=== PATIENT | male | born 1935 | race Caucasian/White ===

== ENCOUNTER 2017-08-27 07:33 | Inpatient (IN) | payer OTHER, BC ==
[2017-08-27] MEDS ORDERED: FAMOTIDINE 20 MG TAB PO ONE (07:38)
[2017-08-27] MEDS ORDERED: DIAZEPAM 5 MG TAB PO ONE (07:38)
[2017-08-27] MEDS ORDERED: NS 1,000 ML IV ONE (07:38)
[2017-08-27] MEDS ORDERED: ASPIRIN EC 325 MG TAB PO ONE ×2 (07:38→07:57)
[2017-08-27] MEDS ORDERED: diphenhydrAMINE 25 MG CAP PO ONE ×2 (07:38→07:57)
--- NOTE | 2017-08-27 07:56 | CPEKG ---
Heart Rate: 70 RR Interval: 857 P-R Interval: 146 QRSD Interval: 162 QT Interval: 468 QTC Interval: 506 P [place]: 0 QRS [place]: -55 T Wave [place]: 78 EKG Severity - ABNORMAL ECG - EKG Impression: VENTRICULAR-PACED COMPLEXES Electronically Signed By: Sanjay Soni 27-Aug-2017 09:22:21
[2017-08-27] MEDS ORDERED: FAMOTIDINE 20 MG TAB ONE (07:57)
[2017-08-27] MEDS ORDERED: DIAZEPAM 5 MG TAB ONE (07:58)
[2017-08-27 08:11] LABS: % IMMATURE GRANULYOCYTES 0.1 % (0.0-1.1); ABSOLUTE IMMATURE GRANULOCYTES 0.01 10^3/uL (0.00-0.10); ADD DIFF? NO; ADD MORPH? NO; ADD SCAN? NO; ATYPICAL LYMPHOCYTE FLAG 0 (0-99); FRAGMENT RBC FLAG 0 (0-99); HEMATOCRIT 39.3 % (40.0-51.0); HEMOGLOBIN 13.9 g/dL (13.7-17.5); LEFT SHIFT FLG 0 (0-99); LIPEMIA HEMOLYSIS FLAG 90 (0-99); MEAN CELL HEMOGLOBIN CONCENTR. 35.4 g/dL (32.4-36.7); MEAN CELL VOLUME 90.6 fL (81.5-99.8); MEAN PLATELET VOLUME 11.2 fL (8.7-11.7); PLATELET CLUMPS FLAG 0 (0-99); PLATELET COUNT 211 10^3/uL (150-400); RED BLOOD CELL COUNT 4.34 10^6/uL (4.40-6.38); RED CELL DISTRIBUTION WIDTH 12.3 % (11.5-15.2)
[2017-08-27 08:24] LABS: INR 1.02 (0.83-1.16); PROTIME(PATIENT) 13.6 SEC (12.0-15.0)
[2017-08-27 08:25] LABS: ANION GAP 10 mEq/L (8-16); CALCIUM 9.6 mg/dL (8.5-10.4); CARBON DIOXIDE 27 mEq/l (22-31); CHLORIDE 102 mEq/L (97-110); CHOLESTEROL 169 mg/dL (140-220); CHOLESTEROL/HDL RATIO 4.69 RATIO (1.00-4.97); GLOMERULAR FILTRATION RATE > 60; GLUCOSE 105 mg/dL (70-100); HIGH DENSITY LIPOPROTEIN 36 mg/dL (40-65); LDL/HDL RATIO 3.17 RATIO (1.00-3.64); LOW DENSITY LIPOPROTEIN 114 mg/dL (80-100); NON-HIGH DENSITY LIPOPROTEIN 133 mg/dL (90-129); POTASSIUM 4.2 mEq/L (3.5-5.2); SODIUM 139 mEq/L (134-144); TRIGLYCERIDE 97 mg/dL (40-150); VERY LOW DENSITY LIPOPROTEINS 19 mg/dL (8-25)
[2017-08-27] MEDS ORDERED: LIDOCAINE 1% 300 MG/30 ML SDV ONE (08:26)
[2017-08-27] MEDS ORDERED: fentaNYL 100 MCG/2 ML INJ ONE ×2 (08:27→08:52)
[2017-08-27] MEDS ORDERED: MIDAZOLAM 2 MG/2 ML VIAL ONE ×2 (08:27→08:51)
[2017-08-27] MEDS ORDERED: IOPAMIDOL (ISOVUE-370) 150 ML BTL IV ONE (08:27)
[2017-08-27] MEDS ORDERED: HEPARIN 10,000 UNIT/10 ML MDV ONE (08:27)
[2017-08-27] MEDS ORDERED: VERAPAMIL 5 MG/2 ML VIAL ONE (08:27)
[2017-08-27] MEDS ORDERED: fentaNYL 100 MCG/2 ML INJ IVP ONE (08:49)
[2017-08-27] MEDS ORDERED: BENZOCAINE UNIT DOSE SPRAY HURRICAINE MM ONE (08:49)
[2017-08-27] MEDS ORDERED: MIDAZOLAM 2 MG/2 ML VIAL IVP ONE (08:49)
--- NOTE | 2017-08-27 08:51 | PDPROPOC ---
Sedation Plan of Care Sedation Plan of Care: vital signs stable, mental status noted, patient educated of risks, benefits, alternatives, patient can tolerate sedation ASA Classification: ASA 2 Planned drugs: fentanyl, midazolam Mallampati Score: Class 2 Mallampati Reference Image: Patient passed 3-3-2 rule?: Yes
--- NOTE | 2017-08-27 08:51 | PDHPUP ---
History & Physical Update H&P update statement: This history and physical update is based on an assessment of the patient which was completed after admission or registration (within 24 hours), but prior to the surgery/procedure. H&P update: H&P reviewed & patient examined, no change in patient's condition since H&P completed
[2017-08-27] MEDS ORDERED: NITROGLYCERIN 0.4 MG BTL SL PRN (11:49)
[2017-08-27] MEDS ORDERED: ATROPINE SULFATE 1 MG/10 ML SYR IVP PRN (11:49)
[2017-08-27] MEDS ORDERED: HYDROCODONE/APAP 5/325 TAB PO PRN (11:49)
[2017-08-27] MEDS ORDERED: ONDANSETRON 4 MG/2 ML VIAL IVP PRN (11:49)
[2017-08-27] MEDS ORDERED: OXYCODONE/APAP 5/325 TAB PO PRN (11:49)
--- NOTE | 2017-08-27 11:50 | ECHO ---
[email or web address] [address] [address] Main: [phone] Fax: Transesophageal Echocardiography Name: LIOR MARY MR#: [id number] Study Date: 08/27/2017 Study Time: 09:19 AM Date of : 1935 Age: 82 year(s) Height: 182.9 cm (72 in.) Weight: 86.64 kg (191 lb.) BSA: 2.09 m2 Gender: Male Examination: PETE Indication: Eval aortic regurgitation Image Quality: Contrast: Requested by: Homa Barrera Heart Rate: Rhythm: BP: 124 mmHg/51 mmHg Procedure Staff Deaf And Hard Of Hearing Teacher: Faby Murphy Physician: Homa Barrera Requesting Provider: Efrain Rodrigues PETE Exam Details Patient Consent: Risks, alternatives of procedure explained to patient, informed consent obtained. Exam Location: Echo lab Patient Fasting: yes Conclusions: Mildly reduced systolic LV function. The ejection fraction is estimated to be 40 %. An agitated saline study was performed and was negative for intracardiac shunting. interatrial septum is thickened. No thrombus in left appendage. Spontaneous contrast is present in the left atrial appendage. The mitral valve leaflets appear redundant. Mild mitral valve regurgitation is present. The aortic valve is tri-leaflet. The RCC of the aortic valve is thickened and appears to prolapse causing a severe eccentric jet of aortic regurgitation.. Measurements: Chambers Valvular Assessment AV/MV Valvular Assessment TV/PV Normal Normal Normal Name Value Range Name Value Range Name Value Range EF Range: 40 % Additional Measurements: Patient: LIOR MARY Study Date: 08/27/2017 Page 1 of 2 09:19 AM Findings: Left Ventricle: Mildly reduced systolic LV function. The ejection fraction is estimated to be 40 %. Left Atrium: An agitated saline study was performed and was negative for intracardiac shunting. interatrial septum is thickened. Left Atrial Appendage: No thrombus in left appendage. Spontaneous contrast is present in the left atrial appendage. Mitral Valve: The mitral valve leaflets appear redundant. Mild mitral valve regurgitation is present. Aortic Valve: The aortic valve is tri-leaflet. The RCC of the aortic valve is thickened and appears to prolapse causing a severe eccentric jet of aortic regurgitation.. l1n (No Signature Object) Patient: LIOR MARY Study Date: 08/27/2017 Page 2 of 2 09:19 AM [id number]
--- NOTE | 2017-08-27 11:57 | PDDXCAT ---
Diagnostic Cath Note - . Date: 08/27/17 Stock Analyst: Holly Indication: other (pre AVR) - Procedure Access: right groin Procedure: left heart catheterization, coronary angiography, left ventriculogram - Materials Left Heart Cath size: 6F Left Heart Cath materials: standard multipack (JL4, JR4, pigtail) - Findings-Left Heart Catheterization LM: normal LAD: normal with 2 principal diagonals LCX: normal with 2 OM branches RCA: dominant. Normal. EDP: 11 LVEF: 50 Wall motion: mild global HK - Findings-Right Heart Catheterization AO: 152/61 Complications: none Estimated blood loss: <50ml Closure method: manual pressure Assessment: Normal coronary arteries. Severe AR; mild CMP. Proceed to AVR Patient Problems: Problems Problem Status Onset Atrial fibrillation Acute Cardiomyopathy, dilated, nonischemic Acute
[2017-08-27 12:28] LABS: HEMOGLOBIN A1C 5.7 % (4.0-6.0)
--- NOTE | 2017-08-27 12:56 | PDGENHP ---
History and Physical - Chief Complaint AI, PAF - History of Present Illness 82M with severe AI and paroxysmal atrial fibrillation admitted today for risk stratification. Pt is s/p LHC which revealed normal coronary arteries. Pt denies light-headedness, weakness, CP, SOB, orthopnea, abd pain, or LE edema. History Information - Allergies/Home Medication List Allergies/Adverse Reactions: No Known Allergies Allergy (Unverified 08/22/13 11:30) Home Medications: Levothyroxine [Synthroid 75 mcg (*)] 75 mcg PO DAILY06 08/22/13 [Last Taken ] Venlafaxine Xr [Effexor Xr 75MG (*)] 225 mg PO DAILY18 08/22/13 [Last Taken ] Carvedilol [Coreg (*)] 25 mg PO BIDMEAL 11/22/13 [Last Taken 08/26/17] Spironolactone [Aldactone 25 MG (*)] 6.25 mg PO DAILY 11/22/13 [Last Taken 08/26] Furosemide [Lasix 40 MG (*)] 40 mg PO BID 08/19/17 [Last Taken 08/26/17] Tamsulosin HCl [Flomax 0.4 MG (*)] 0.4 mg PO DAILY 08/19/17 [Last Taken 08/26/17 ] Losartan Potassium [Cozaar 50 mg (*)] 50 mg PO DAILY 08/25/17 [Last Taken ] Rivaroxaban [Xarelto 10mg (*)] 20 mg PO DAILY 08/25/17 [Last Taken 08/25/17] I have personally reviewed and updated: medical history, social history, surgical history - Past Medical History atrial fibrillation, CHF, hypertension Additional medical history: AI, BPH, depression - Surgical History Reports: pacemaker/AICD (BIV) - Social History Smoking Status: Never smoked Review of Systems Review of Systems: ROS: 10pt was reviewed & negative except for what was stated in HPI & below Physical Exam Physical Exam: Constitutional: no apparent distress, appears nourished, not in pain Eyes: anicteric sclera Ears, Nose, Mouth, Throat: hearing normal Cardiovascular: other (V paced) Respiratory: no respiratory distress Gastrointestinal: soft, non-tender abdomen Skin: warm, normal color Neurologic: AAOx3 Psychiatric: interacting appropriately, not anxious, not encephalopathic, thought process linear Lab Data & Imaging Review 08/27/17 07:55 08/27/17 07:55 WBC 7.41 10^3/uL (3.80-9.50) 08/27/17 07:55 RBC 4.34 10^6/uL (4.40-6.38) L 08/27/17 07:55 Hgb 13.9 g/dL (13.7-17.5) 08/27/17 07:55 Hct 39.3 % (40.0-51.0) L 08/27/17 07:55 MCV 90.6 fL (81.5-99.8) 08/27/17 07:55 MCH 32.0 pg (27.9-34.1) 08/27/17 07:55 MCHC 35.4 g/dL (32.4-36.7) 08/27/17 07:55 RDW 12.3 % (11.5-15.2) 08/27/17 07:55 Plt Count 211 10^3/uL (150-400) 08/27/17 07:55 MPV 11.2 fL (8.7-11.7) 08/27/17 07:55 Neut % (Auto) 61.6 % (39.3-74.2) 08/27/17 07:55 Lymph % (Auto) 22.0 % (15.0-45.0) 08/27/17 07:55 [place] % (Auto) 8.2 % (4.5-13.0) 08/27/17 07:55 Eos % (Auto) 7.2 % (0.6-7.6) 08/27/17 07:55 Baso % (Auto) 0.9 % (0.3-1.7) 08/27/17 07:55 Nucleat RBC Rel Count 0.0 % (0.0-0.2) 08/27/17 07:55 Absolute Neuts (auto) 4.56 10^3/uL (1.70-6.50) 08/27/17 07:55 Absolute Lymphs (auto) 1.63 10^3/uL (1.00-3.00) 08/27/17 07:55 Absolute Monos (auto) 0.61 10^3/uL (0.30-0.80) 08/27/17 07:55 Absolute Eos (auto) 0.53 10^3/uL (0.03-0.40) H 08/27/17 07:55 Absolute Basos (auto) 0.07 10^3/uL (0.02-0.10) 08/27/17 07:55 Absolute Nucleated RBC 0.00 10^3/uL (0-0.01) 08/27/17 07:55 Immature Gran % 0.1 % (0.0-1.1) 08/27/17 07:55 Immature Gran # 0.01 10^3/uL (0.00-0.10) 08/27/17 07:55 PT 13.6 SEC (12.0-15.0) 08/27/17 07:55 INR 1.02 (0.83-1.16) 08/27/17 07:55 Sodium 139 mEq/L (134-144) 08/27/17 07:55 Potassium 4.2 mEq/L (3.5-5.2) 08/27/17 07:55 Chloride 102 mEq/L (97-110) 08/27/17 07:55 Carbon Dioxide 27 mEq/l (22-31) 08/27/17 07:55 Anion Gap 10 mEq/L (8-16) 08/27/17 07:55 BUN 23 mg/dL (7-23) 08/27/17 07:55 Creatinine 1.0 mg/dL (0.7-1.3) 08/27/17 07:55 Estimated GFR > 60 08/27/17 07:55 Glucose 105 mg/dL (70-100) H 08/27/17 07:55 Hemoglobin A1c 5.7 % (4.0-6.0) 08/27/17 07:55 Estim Average Glucose 117 mg/dL (68-126) 08/27/17 07:55 Calcium 9.6 mg/dL (8.5-10.4) 08/27/17 07:55 Magnesium 2.0 mg/dL (1.6-2.3) 08/27/17 07:55 Triglycerides 97 mg/dL (40-150) 08/27/17 07:55 Cholesterol 169 mg/dL (140-220) 08/27/17 07:55 Cholesterol Risk Factr 1.0 (0.2-1.0) 08/27/17 07:55 LDL Cholesterol, Calc 114 mg/dL (80-100) H 08/27/17 07:55 LDL Risk Factor 1.0 (0.2-1.0) 08/27/17 07:55 VLDL Cholesterol 19 mg/dL (8-25) 08/27/17 07:55 Non-HDL Cholesterol 133 mg/dL (90-129) H 08/27/17 07:55 HDL Cholesterol 36 mg/dL (40-65) L 08/27/17 07:55 LDL/HDL Ratio 3.17 RATIO (1.00-3.64) 08/27/17 07:55 Cholesterol/HDL Ratio 4.69 RATIO (1.00-4.97) 08/27/17 07:55 Patient ABO/Rh O POSITIVE 08/27/17 07:55 Antibody Screen NEGATIVE 08/27/17 07:55 Imaging Review: CXR and carotid US pending Visualized and Interpreted imaging results: Yes Interpretation: PETE: EF 40%, no ZORAN thrombus, mild MR, severe AI Visualized and Interpreted EKG results: Yes EKG Interpretation: Positive for: other (V paced) Assessment & Plan Assessment: 82M with severe AI/PAF Plan: AVR, CM [address] Rodrigues
[2017-08-27] MEDS: VENLAFAXINE XR 75 MG CAP PO SCH (16:49)
[2017-08-27] MEDS: CARVEDILOL 25 MG TAB PO SCH (16:50)
[2017-08-27] MEDS: LOSARTAN POTASSIUM 50 MG TAB PO SCH (16:50)
[2017-08-27] MEDS: TAMSULOSIN HCL 0.4 MG CAP PO SCH (16:50)
[2017-08-27] MEDS: FUROSEMIDE 40 MG TAB PO SCH ×2 (16:58→19:32)
[2017-08-27] MEDS: DOFETILIDE 0.125 MG CAP PO SCH (20:08)
[2017-08-27] MEDS ORDERED: CHLORHEXIDINE GLUC HIBICLENS 118 ML BTL TP SCH (21:00)
[2017-08-28] MEDS ORDERED: MANNITOL 25% 12.5 GM/50 ML VIAL IVP ONE (06:00)
[2017-08-28] MEDS ORDERED: INSULIN REGULAR HUMAN 100 UNIT in NS 100 ML IV ONE (06:00)
[2017-08-28] MEDS ORDERED: NOREPINEPHRINE BITARTRATE 16 MG in NS 250 ML IV ONE (06:00)
[2017-08-28] MEDS ORDERED: niCARdipine/NACL 200 ML IV SCH ×2 (06:00→15:30)
[2017-08-28] MEDS ORDERED: MUPIROCIN 2% 22 GM OINT NS ONE (06:00)
[2017-08-28] MEDS ORDERED: PHENYLEPHRINE HCL 50 MG in NS 250 ML IV ONE (06:00)
[2017-08-28] MEDS ORDERED: CITRATE DEXTROSE SOLN 500 ML BAG MISC ONE (06:00)
[2017-08-28] MEDS ORDERED: AMINOCAPROIC ACID 5 GM/20 ML VIAL IV ONE (06:00)
[2017-08-28] MEDS ORDERED: PROTAMINE SULFATE 50 MG/5 ML VIAL IVP ONE (06:19)
[2017-08-28] MEDS ORDERED: MILRINONE/DEXTROSE/100 ML BAG IV ONE (06:19)
[2017-08-28] MEDS ORDERED: CALCIUM CHLORIDE 1 GM/10 ML INJ ONE (06:19)
[2017-08-28] MEDS ORDERED: ALBUMIN 5% 250 ML BOTTLE IV ONE ×2 (06:19→10:38)
[2017-08-28] MEDS ORDERED: LIDOCAINE 2% 100 MG/5 ML SYR ONE (06:20)
[2017-08-28] MEDS ORDERED: AMINOCAPROIC ACID 5 GM/20 ML VIAL ONE (06:20)
[2017-08-28] MEDS ORDERED: niCARdipine/NACL/200 ML BAG IV ONE ×2 (06:20→15:03)
[2017-08-28] MEDS ORDERED: DOPamine/DEXTROSE/250 ML BAG IV ONE (06:20)
[2017-08-28] MEDS ORDERED: AMIODARONE HCL 150 MG/3 ML VIAL ONE (06:20)
[2017-08-28] MEDS ORDERED: NA BICARBONATE 50 MEQ/50 ML VIAL ONE (06:20)
[2017-08-28] MEDS ORDERED: CITRATE DEXTROSE SOLN 500 ML BAG ONE (06:20)
[2017-08-28] MEDS ORDERED: ADENOSINE 6 MG/2 ML VIAL ONE (06:20)
[2017-08-28] MEDS ORDERED: MAGNESIUM SULFATE 1 GM/2 ML VIAL ONE (06:21)
[2017-08-28] MEDS ORDERED: HEPARIN 10,000 UNIT/10 ML MDV ONE (06:21)
[2017-08-28] MEDS ORDERED: ceFAZolin 1 GM VIAL ONE ×3 (06:21→11:05)
[2017-08-28] MEDS ORDERED: methylPREDNISolone SOD SUCC 1 GM/8 ML VIAL ONE (06:21)
[2017-08-28] MEDS ORDERED: LR 1,000 ML IV ONE (07:00)
--- NOTE | 2017-08-28 07:39 | PDHPUP ---
History & Physical Update H&P update statement: This history and physical update is based on an assessment of the patient which was completed after admission or registration (within 24 hours), but prior to the surgery/procedure.
[2017-08-28] MEDS ORDERED: MINERAL OIL 10 ML VIAL ONE (07:51)
[2017-08-28] MEDS ORDERED: MIDAZOLAM 2 MG/2 ML VIAL ONE (07:56)
[2017-08-28] MEDS ORDERED: MIDAZOLAM 2 MG/2 ML VIAL IVP ONE (07:58)
--- NOTE | 2017-08-28 07:58 | PDANEPAE ---
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 Denies CP,SOB - Pulmonary History Hx COPD: No Hx Asthma/Reactive Airway Disease: No Hx Recent Upper Respiratory Infection: No Hx Oxygen in Use at Home: Yes O2 in Use at Home (L/minute): O2 concentrator at night Hx Sleep Apnea: Yes Sleep Apnea Screening Result - Last Documented: Positive Pulmonary History Comment: when living in [place], [place] Sats ran 94%. In [place] Sats run 96-99%. Dx CORDELIA- NO CPAP, only O2 at nite. - Neurologic History Hx Cerebrovascular Accident: No Hx Seizures: No Hx Dementia: No - Endocrine History Hx Diabetes: No Endocrine History Comment: hypothyroid - Renal History Hx Renal Disorders: Yes Renal History Comment: BPH on Flomax - Liver History Hx Hepatic Disorders: No - Neurological & Psychiatric Hx Hx Neurological and Psychiatric Disorders: Yes Neurological / Psychiatric History Comment: depression-on Rx - Cancer History Hx Cancer: No - Congenital Disorder History Hx Congenital Disorders: No - GI History Hx Gastrointestinal Disorders: No - Other Health History Other Health History: skin-bruises sl more w/Xarelto - Chronic Pain History Chronic Pain: No - Surgical History Prior Surgeries: cataract extractions w/IOL. pacemaker insertion 2-14. sx on R epididymis. fatty tumor excised. R bunionectomy ANE Review of Systems Review of Systems: - Exercise capacity METS (RN): 4 METS - Pacemaker Pacemaker Classified Advertising Supervisor: Medtronic Pacemaker Model: CRTD VIVA XT IS1/DF4 Pacemaker Mode: DDI Date Pacemaker Last Checked: 06-03-2017 ANE Patient History - Allergies Allergies/Adverse Reactions: No Known Allergies Allergy (Unverified 08/22/13 11:30) - Home Medications Home Medications: Levothyroxine [Synthroid 75 mcg (*)] 75 mcg PO DAILY06 08/22/13 [Last Taken ] Venlafaxine Xr [Effexor Xr 75MG (*)] 225 mg PO DAILY18 08/22/13 [Last Taken ] Carvedilol [Coreg (*)] 25 mg PO BIDMEAL 11/22/13 [Last Taken 08/26/17] Spironolactone [Aldactone 25 MG (*)] 6.25 mg PO DAILY 11/22/13 [Last Taken 08/26] Furosemide [Lasix 40 MG (*)] 40 mg PO BID 08/19/17 [Last Taken 08/26/17] Tamsulosin HCl [Flomax 0.4 MG (*)] 0.4 mg PO DAILY 08/19/17 [Last Taken 08/26/17 ] Losartan Potassium [Cozaar 50 mg (*)] 50 mg PO DAILY 08/25/17 [Last Taken ] Rivaroxaban [Xarelto 10mg (*)] 20 mg PO DAILY 08/25/17 [Last Taken 08/25/17] - NPO status NPO Since - Liquids (Date): 08/28/17 NPO Since - Liquids (Time): 00:00 NPO Since - Solids (Date): 08/28/17 NPO Since - Solids (Time): 00:00 - Smoking Hx Smoking Status: Never smoked ANE Labs/Vital Signs - Labs Result Diagrams: 08/27/17 07:55 08/27/17 07:55 - Vital Signs Blood Pressure: 132/53 Heart Rate: 73 Respiratory Rate: 16 O2 Sat (%): 98 Height: 6 ft 0.05 in Weight: 85.9 kg ANE Physical Exam - Airway Neck exam: FROM Mallampati Score: Class 2 Mouth exam: normal dental/mouth exam - Pulmonary Pulmonary: no respiratory distress - Cardiovascular Cardiovascular: regular rate and rhythym - ASA Status ASA Status: IV ANE Anesthesia Plan Anesthesia Plan: general endotracheal anesthesia Lines/Monitors: arterial line, central line
[2017-08-28] MEDS ORDERED: REMIFENTANIL HCL 1 MG VIAL ONE (08:12)
[2017-08-28] MEDS ORDERED: fentaNYL 100 MCG/2 ML INJ ONE (08:12)
[2017-08-28] MEDS ORDERED: PROPOFOL/EMULSION 500 MG/50 ML BOTTLE IV ONE (08:12)
[2017-08-28] MEDS ORDERED: DEXMEDETOMIDINE IN 0.9 % NACL 100 ML IV SCH (08:30)
[2017-08-28] MEDS: ceFAZolin 2 GM/SWFI 2 GM/20 ML SYR IVP ONE (08:36)
[2017-08-28] MEDS ORDERED: ROCURONIUM 100 MG/10 ML VIAL ONE (09:58)
[2017-08-28] MEDS ORDERED: NITROGLYCERIN 50 MG/10 ML SDV IV ONE (09:58)
[2017-08-28] MEDS ORDERED: DEXAMETHASONE 4 MG/ML VIAL ONE ×2 (09:58)
[2017-08-28] MEDS ORDERED: MAGNESIUM SULF 2 GM/WATER 50 ML BAG IV ONE (10:37)
[2017-08-28] MEDS: CARVEDILOL 25 MG TAB PO SCH (11:15)
[2017-08-28] MEDS: LOSARTAN POTASSIUM 50 MG TAB PO SCH (11:16)
[2017-08-28] MEDS: FUROSEMIDE 40 MG TAB PO SCH (11:16)
[2017-08-28] MEDS: DOFETILIDE 0.125 MG CAP PO SCH (11:16)
[2017-08-28] MEDS: TAMSULOSIN HCL 0.4 MG CAP PO SCH (11:20)
[2017-08-28] MEDS ORDERED: BISACODYL 10 MG SUPP PR PRN (13:16)
[2017-08-28] MEDS ORDERED: ACETAMINOPHEN 650 MG SUPP PR PRN (13:16)
[2017-08-28] MEDS ORDERED: POLYETHYLENE GLYCOL 3350 17 GM PKT PO PRN (13:16)
[2017-08-28] MEDS ORDERED: ONDANSETRON 4 MG/2 ML VIAL IVP PRN (13:16)
[2017-08-28] MEDS ORDERED: LACTULOSE 20 GM/30 ML UDCUP PO PRN (13:16)
[2017-08-28] MEDS ORDERED: D50W 25 GM/50 ML SYR IVP PRN (13:16)
[2017-08-28] MEDS ORDERED: METOCLOPRAMIDE 10 MG/2 ML VIAL IVP PRN (13:16)
[2017-08-28] MEDS ORDERED: MEPERIDINE 25 MG/ML SYR IVP PRN (13:16)
[2017-08-28] MEDS ORDERED: MAGNESIUM HYDROXIDE 30 ML UDCUP PO PRN (13:16)
[2017-08-28] MEDS ORDERED: SODIUM CL NASAL 45 ML BTL EACHNARE PRN (13:16)
[2017-08-28] MEDS ORDERED: ONDANSETRON DISINTEGRATING 4 MG TAB PO PRN (13:16)
[2017-08-28] MEDS ORDERED: fentaNYL 100 MCG/2 ML INJ IVP PRN (13:16)
[2017-08-28] MEDS ORDERED: ACETAMINOPHEN 325 MG TAB PO PRN (13:16)
[2017-08-28] MEDS ORDERED: PANTOPRAZOLE SODIUM 40 MG VIAL IVP ONE (13:16)
[2017-08-28] MEDS ORDERED: CEPACOL LOZENGE PO PRN (13:16)
[2017-08-28] MEDS ORDERED: MAGNESIUM SULF 2 GM/WATER 50 ML IV ONE (13:16)
[2017-08-28] MEDS ORDERED: INSULIN REGULAR HUMAN 100 UNIT in NS 100 ML IV SCH (13:30)
[2017-08-28] MEDS ORDERED: NS 1,000 ML IV SCH (13:30)
--- NOTE | 2017-08-28 13:40 | POSTANESTH ---
Post Anesthetic Evaluation Cardiovascular Status: Tx Hyper/Hypo-tension Respiratory Status: Other, See Comment Level of Consciousness/Mental Status: Unconscious Pain Control: Adequate, Prn Tx Ordered Nausea/Vomiting Control: Adequate, Prn Tx Ordered Complications Possibly Related to Anesthesia: None Noted (in sicu on vent)
[2017-08-28] MEDS ORDERED: ceFAZolin 2 GM/DEXTROSE 100 ML IV SCH (14:00)
[2017-08-28] MEDS: POTASSIUM Cl (KCl) 50 ML IV PRN ×2 (14:43→16:25)
[2017-08-28] MEDS: ALBUMIN 5% 250 ML IV PRN ×2 (14:45→16:25)
[2017-08-28] MEDS: ceFAZolin 2 GM/SWFI 2 GM/20 ML SYR IVP SCH ×2 (16:26→23:49)
[2017-08-28] MEDS: KETOROLAC 15 MG/1 ML SDV IVP SCH ×2 (16:40→23:54)
[2017-08-28 17:20] LABS: CALCULATED OXYGEN SATURATION 88 % (92-95); O2 CONCENTRATIION 60 % (0-100)
[2017-08-28 19:08] LABS: CALCULATED OXYGEN SATURATION 96 % (92-95); O2 CONCENTRATIION 40 % (0-100)
[2017-08-28] MEDS ORDERED: ORAL BALANCE GEL TUBE PO PRN (19:59)
[2017-08-28] MEDS: MUPIROCIN 2% 22 GM OINT NS SCH (20:51)
--- NOTE | 2017-08-28 22:42 | GOP ---
[f rep st] OPERATIVE REPORT DATE OF OPERATION: 08/28/2017 SURGEON: Efrain Rodrigues DO THEORETICAL PHYSICS TEACHER: Barbara Kim, PAC. ANESTHESIOLOGIST: Verito Gonzalez MD. PREOPERATIVE DIAGNOSIS: 1. 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 2. Severe aortic insufficiency. 3. Longstanding persistent atrial fibrillation. POSTOPERATIVE DIAGNOSIS: 1. 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 2. Severe aortic insufficiency. 3. Longstanding persistent atrial fibrillation. PROCEDURE PERFORMED: 1. Full Rodriguez Maze IV, both left and right side, with cryoablation and radiofrequency ablation, with a ssociated testing. 2. Aortic valve replacement with a #25 Magna bioprosthesis. 3. Left ventricular lead placement on the lateral wall, tunnelled to the previous pacemaker pocket. FINDINGS: DESCRIPTION OF PROCEDURE: Patient was consented for surgery with progressive heart failure symptoms and worsening LV function with associated severe aortic insufficiency. His ascending aorta was not s ignificantly enlarged. The ventricle was markedly enlarged, based on all measured parameters. He hernandez d a previous tachycardia-induced myopathy, which improved with biventricular pacing. Additional LV l ead placement was requested by Electrophysiology. He was brought to the operating room, intubated, monitoring lines were placed. He was prepped and dr betsy in sterile classical manner. Sternotomy was performed. He was heparinized, cannulated in the a scending aorta and bicaval cannulas, as well as retrograde cardioplegia catheter. Cardiopulmonary by pass was begun. The aorta was crossclamped and LV sump was placed, and retrograde cardioplegia was a dministered after cardiac arrest was obtained. Topical hypothermia in the form of slush was also uti lized. It should be noted, before arresting the heart, we did do exit and entrance block confirmatio n in both pulmonary veins, and there was no evidence of obstruction either way. We then performed an aortotomy to inspect the aortic valve. We excised the aortic valve, which was t rileaflet. The right coronary cusp was heavily calcified and prolapsed; in fact, all 3 cusps were pr olapsed. The LV chamber was irrigated. We then placed a 25 mm Magna valve in a supra-annular positi on with interrupted 2-0 Tycron pledgeted mattress sutures. The aortotomy was closed in a two-layer f ashion. Antegrade cardioplegia was then administered directly through the aorta throughout the proce dure. The retrograde catheter was left in place as well. We then did pulmonary vein ablation with 3 separate ablation lines, performed on the right and left a ntrum, confirming transmurality post pump with entrance and exit block confirmation. We then excised the tip of the left atrial appendage and performed an ablation line to the superior pulmonary vein u ntil impedance was less than 10 seconds. We then marked the terminus of the left and right coronarie s on the coronary sinus with a blue marker, by elevating the heart. We then exposed the left atrium through the right superior pulmonary vein, extending the incision all the way over to the left pulmon [place] veins superiorly and in from the inferior pulmonary veins doing almost a classic cut-and-sew Maze . I then completed the roof in 4 lesions with radiofrequency, with multiple lesion sets confirming i t. I then performed the isthmus lesion up to the anulus with radiofrequency, and then overlapped it inferiorly along the coronary sinus and superiorly with 3-minute cryoablation on both surfaces. It s hould be noted, the retrograde catheter had been pulled out before that. The left atrium was then cl osed without difficulty. These tissues were quite friable. LV sump was left across the mitral valve for de-airing. We then removed the cross-clamp. It should be noted we then placed a clip across the left atrial appendage, occluding it flush with th e left atrium. Aspiration through the apex to remove air and intermittent ventricular sump drainage of the ventricle were performed to remove air when the cross-clamp was removed, and both vents were k ept up to keep him from ejecting. We then secured the caval tapes and performed the right-sided lesi on set with a free wall ablation with radiofrequency and incision down to the septum, and then the ca martha lines performed with radiofrequency. The isthmus line was completed with cryo for 3 minutes. Th e right atrium was then closed with continuous running 4-0 Prolene. We then spent some time fixing a tear in the inferior cava from traction on the caval cannula without difficulty, with felt reinforcement. We then arrested the patient on pump. During that period, the LV lead was screwed into the lateral wall above the circumflex distribution, down near the coronary sinus. It was sewn in for security, and then brought up on the anterior surface of the heart. After weaning the patient from bypass, the echo confirmed a good valvular function, ventricular function a ppeared to be markedly impaired; pre pump was approximately 40%, post pump was in the 30% range. Keaton tropes were begun and then with time, his pump function actually improved, we were able to wean down some of the inotropes. The heparin was reversed with protamine. The cannulas were removed and overs ewn. Four pacing wires were placed. The thymic fat and pericardium were closed. Chest was closed w ith 2 mediastinal drains. I then tunneled the pacemaker, bringing it up over the sternal notch beneath the pacemaker pocket, wh ere it was secured with a cap on it, for future attention. He was returned to ICU in stable condgaleo n. /[id number]/MODL
[2017-08-28 23:19] LABS: HEMATOCRIT 30.5 % (40.0-51.0); HEMOGLOBIN 10.6 g/dL (13.7-17.5); MEAN CELL HEMOGLOBIN 32.4 pg (27.9-34.1); MEAN CELL HEMOGLOBIN CONCENTR. 34.8 g/dL (32.4-36.7); MEAN CELL VOLUME 93.3 fL (81.5-99.8); RED BLOOD CELL COUNT 3.27 10^6/uL (4.40-6.38); RED CELL DISTRIBUTION WIDTH 12.8 % (11.5-15.2)
[2017-08-29 04:13] LABS: % IMMATURE GRANULYOCYTES 0.6 % (0.0-1.1); ABSOLUTE IMMATURE GRANULOCYTES 0.12 10^3/uL (0.00-0.10); ADD DIFF? NO; ADD MORPH? NO; ADD SCAN? NO; ATYPICAL LYMPHOCYTE FLAG 0 (0-99); FRAGMENT RBC FLAG 0 (0-99); HEMATOCRIT 30.4 % (40.0-51.0); HEMOGLOBIN 10.5 g/dL (13.7-17.5); LEFT SHIFT FLG 20 (0-99); LIPEMIA HEMOLYSIS FLAG 90 (0-99); MEAN CELL HEMOGLOBIN 32.3 pg (27.9-34.1); MEAN CELL HEMOGLOBIN CONCENTR. 34.5 g/dL (32.4-36.7); MEAN CELL VOLUME 93.5 fL (81.5-99.8); MEAN PLATELET VOLUME 11.4 fL (8.7-11.7); PLATELET CLUMPS FLAG 10 (0-99); PLATELET COUNT 166 10^3/uL (150-400); RED BLOOD CELL COUNT 3.25 10^6/uL (4.40-6.38); RED CELL DISTRIBUTION WIDTH 12.8 % (11.5-15.2)
[2017-08-29 04:23] LABS: INR 1.27 (0.83-1.16); PROTIME(PATIENT) 16.1 SEC (12.0-15.0)
[2017-08-29 04:28] LABS: ANION GAP 9 mEq/L (8-16); CALCIUM 9.1 mg/dL (8.5-10.4); CARBON DIOXIDE 27 mEq/l (22-31); CHLORIDE 112 mEq/L (97-110); CREATININE 1.1 mg/dL (0.7-1.3); GLOMERULAR FILTRATION RATE > 60; GLUCOSE 127 mg/dL (70-100); POTASSIUM 4.9 mEq/L (3.5-5.2); SODIUM 148 mEq/L (134-144)
[2017-08-29] MEDS: KETOROLAC 15 MG/1 ML SDV IVP SCH ×2 (05:49→11:35)
[2017-08-29] MEDS: HEPARIN 5,000 UNIT/0.5 ML SYR SC SCH ×3 (05:56→22:03)
[2017-08-29] MEDS ORDERED: FUROSEMIDE 20 MG/2 ML VIAL IVP ONE (06:30)
--- NOTE | 2017-08-29 07:16 | SOAPPROG ---
SOAP Progress Note Assessment/Plan: POD #1 AVR with #25 Magna bioprosthesis, Rodriguez-Maze IV, left ventricular lead placement tunneled to AICD pocket Severe AI s/p bioprosthetic AVR - stable. Long-standing persistent atrial fibrillation s/p CM4 - Coumadin for INR 2-3 duration dependent on rhythm. Continue atrial pacing for optimized hemodynamics. Acute blood loss anemia - stable without the need for blood product transfusions. 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 HF meds seals appropriate. h/o AICD placement s/p LV lead placement tunnelled to pacer pocket - for future management as per cardiology. Subjective: Denies SOB/CP. Objective: Vital Signs Temp Pulse Resp BP Pulse Ox 37.4 C 98 18 118/65 93 08/29/17 05:00 08/29/17 05:00 08/29/17 05:00 08/29/17 05:00 08/29/17 05:00 Microbiology 08/28/17 08:45 Gram Stain - Final Neck - Other Laboratory Results 08/29/17 04:00 08/29/17 04:00 08/28/17 08/29/17 08/30/17 05:59 05:59 05:59 Intake Total 750 1285.6 Output Total 1848 Balance 750 -562.4 PT 16.1 SEC (12.0-15.0) H 08/29/17 04:00 INR 1.27 (0.83-1.16) H 08/29/17 04:00 Physical Exam - Physical Exam General Appearance: WD/WN, alert, no apparent distress EENT: No scleral icterus (R), No scleral icterus (L) Neck: normal inspection Respiratory: No respiratory distress Cardiac/Chest: other (atrial paced) Abdomen: normal bowel sounds, soft, No distended Skin: normal color, warm/dry Extremities: No pedal edema Neuro/Psych: no motor/sensory deficits, alert, normal mood/affect, oriented x 3 ICD10 Worksheet Patient Problems: Problems Problem Status Onset Acute blood loss anemia Acute S/P aortic valve replacement with bioprosthetic valve Acute ~08/28/17 Status post Maze operation for atrial fibrillation Acute ~08/28/17 s/p placement of LV epicardial lead Acute ~08/28/17 Aortic valve insufficiency Chronic Chronic anticoagulation Chronic Atrial fibrillation Chronic Cardiomyopathy, dilated, nonischemic Chronic
[2017-08-29] MEDS ORDERED: ASPIRIN 81 MG CHEWABLE TAB TUBE PRN (09:00)
[2017-08-29] MEDS: ceFAZolin 2 GM/SWFI 2 GM/20 ML SYR IVP SCH ×2 (09:00→15:56)
[2017-08-29] MEDS: MUPIROCIN 2% 22 GM OINT NS SCH ×2 (09:01→21:16)
[2017-08-29] MEDS: ASPIRIN 81 MG CHEWABLE TAB PO SCH (09:03)
[2017-08-29] MEDS: PANTOPRAZOLE SODIUM 40 MG TAB PO SCH (09:03)
[2017-08-29] MEDS: ALBUMIN 5% 250 ML IV PRN (10:15)
[2017-08-29] MEDS ORDERED: fentaNYL 25 MCG PATCH TD ONE ×2 (11:26→12:00)
[2017-08-29 12:29] LABS: POTASSIUM 4.9 mEq/L (3.5-5.2)
[2017-08-29] MEDS: VENLAFAXINE XR 75 MG CAP PO SCH ×2 (15:11→18:00)
[2017-08-29] MEDS ORDERED: WARFARIN SODIUM 5 MG TAB PO ONE (16:00)
--- NOTE | 2017-08-29 16:09 | ASMTCMCOM ---
CM Note CM Note Notes: Pt is s/p heart surgery with Dr Rodrigues. DC needs not clear yet, PT continuing to assess pt, awaiting their recommendation. Pt lives at home w/. CM will follow. Date Signed: 08/29/2017 04:09 PM Electronically Signed By:Shasta Napier RN
[2017-08-29 18:24] LABS: POTASSIUM 4.8 mEq/L (3.5-5.2)
[2017-08-30] MEDS: ceFAZolin 2 GM/SWFI 2 GM/20 ML SYR IVP SCH (00:06)
[2017-08-30 04:35] LABS: % IMMATURE GRANULYOCYTES 0.6 % (0.0-1.1); ABSOLUTE IMMATURE GRANULOCYTES 0.11 10^3/uL (0.00-0.10); ADD DIFF? NO; ADD MORPH? NO; ADD SCAN? NO; ATYPICAL LYMPHOCYTE FLAG 0 (0-99); FRAGMENT RBC FLAG 0 (0-99); HEMATOCRIT 29.1 % (40.0-51.0); HEMOGLOBIN 9.9 g/dL (13.7-17.5); LEFT SHIFT FLG 20 (0-99); LIPEMIA HEMOLYSIS FLAG 90 (0-99); MEAN CELL HEMOGLOBIN 32.7 pg (27.9-34.1); MEAN PLATELET VOLUME 11.8 fL (8.7-11.7); PLATELET CLUMPS FLAG 0 (0-99); PLATELET COUNT 132 10^3/uL (150-400); RED BLOOD CELL COUNT 3.03 10^6/uL (4.40-6.38); RED CELL DISTRIBUTION WIDTH 13.1 % (11.5-15.2)
[2017-08-30 04:42] LABS: INR 1.82 (0.83-1.16); PROTIME(PATIENT) 21.2 SEC (12.0-15.0)
[2017-08-30 04:53] LABS: POTASSIUM 4.7 mEq/L (3.5-5.2)
[2017-08-30 04:54] LABS: ANION GAP 8 mEq/L (8-16); CALCIUM 8.8 mg/dL (8.5-10.4); CARBON DIOXIDE 29 mEq/l (22-31); CHLORIDE 108 mEq/L (97-110); CREATININE 1.2 mg/dL (0.7-1.3); GLOMERULAR FILTRATION RATE 58; GLUCOSE 145 mg/dL (70-100); SODIUM 145 mEq/L (134-144)
[2017-08-30] MEDS: LEVOTHYROXINE 75 MCG TAB PO SCH (06:03)
[2017-08-30] MEDS: HEPARIN 5,000 UNIT/0.5 ML SYR SC SCH (06:03)
--- NOTE | 2017-08-30 07:21 | SOAPPROG ---
SOAP Progress Note Assessment/Plan: POD #2 AVR with #25 Magna bioprosthesis, Rodriguez-Maze IV, left ventricular lead placement tunneled to AICD pocket Severe AI s/p bioprosthetic AVR - stable. Chest tubes to be removed today. Long-standing persistent atrial fibrillation s/p CM4 - Coumadin for INR 2-3 duration dependent on rhythm. Will hold Coumadin tonight d/t rapid increase in INR. Restart Tikosyn today for AF prophylaxis. Acute blood loss anemia - stable without the need for blood product transfusions. 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 h/o AICD placement s/p LV lead placement tunnelled to pacer pocket - for future management as per cardiology. Device to be reinterrogated today as sensing appears to be off. Temporary pacer wires to be removed. r/o dysphagia - coughing when drinking water. Will make NPO and have PROPERTY UTILIZATION MANAGER see. Subjective: Denies pain/SOB. Coughed last night while drinking water. Objective: Vital Signs Temp Pulse Resp BP Pulse Ox 36.5 C 88 22 H 101/63 97 08/30/17 06:00 08/30/17 06:00 08/30/17 06:00 08/30/17 06:00 08/30/17 06:00 Microbiology 08/28/17 08:45 Gram Stain - Final Neck - Other Laboratory Results 08/30/17 04:25 08/30/17 04:25 08/29/17 08/30/17 08/31/17 05:59 05:59 05:59 Intake Total 1285.6 1355 Output Total 1848 1475 Balance -562.4 -120 PT 21.2 SEC (12.0-15.0) H 08/30/17 04:25 INR 1.82 (0.83-1.16) H 08/30/17 04:25 Physical Exam - Physical Exam General Appearance: WD/WN, alert, no apparent distress EENT: No scleral icterus (R), No scleral icterus (L) Neck: normal inspection Respiratory: No respiratory distress Cardiac/Chest: other (paced) Abdomen: non-tender, soft, No distended Skin: normal color, warm/dry Extremities: No pedal edema Neuro/Psych: no motor/sensory deficits, alert, normal mood/affect, oriented x 3 ICD10 Worksheet Patient Problems: Problems Problem Status Onset Acute blood loss anemia Acute S/P aortic valve replacement with bioprosthetic valve Acute ~08/28/17 Status post Maze operation for atrial fibrillation Acute ~08/28/17 s/p placement of LV epicardial lead Acute ~08/28/17 Aortic valve insufficiency Chronic Chronic anticoagulation Chronic Atrial fibrillation Chronic Cardiomyopathy, dilated, nonischemic Chronic
[2017-08-30] MEDS ORDERED: traMADol 50 MG TAB PO PRN (09:32)
[2017-08-30] MEDS: MUPIROCIN 2% 22 GM OINT NS SCH (10:46)
[2017-08-30] MEDS: PANTOPRAZOLE SODIUM 40 MG TAB PO SCH (12:55)
[2017-08-30] MEDS: SENNOSIDES/DOCUSATE SODIUM TAB PO SCH ×2 (12:55→20:55)
[2017-08-30] MEDS: TAMSULOSIN HCL 0.4 MG CAP PO SCH (12:56)
[2017-08-30] MEDS: ASPIRIN 81 MG CHEWABLE TAB PO SCH (12:56)
[2017-08-30] MEDS: VENLAFAXINE XR 75 MG CAP PO SCH (17:47)
[2017-08-30] MEDS: DOFETILIDE 0.125 MG CAP PO SCH (20:55)
[2017-08-31] MEDS: LEVOTHYROXINE 75 MCG TAB PO SCH (06:02)
[2017-08-31 06:43] LABS: INR 2.82 (0.83-1.16); PROTIME(PATIENT) 29.6 SEC (12.0-15.0)
--- NOTE | 2017-08-31 06:49 | SOAPPROG ---
SOAP Progress Note Assessment/Plan: Assessment: POD#3 AVR#25 Magna bioprosthesis, Rodriguez-Maze IV, left ventricular lead placement tunneled to AICD pocket Severe AI - s/p bioprosthetic AVR. Stable early postop course. Tubes and TCPWs out. Antithrombotic prophylaxis as per rhythm. Presence AICD for NIDCM - Epicardial LV lead placed and tunnelled to pacer pocket to secure FARMER AND GRAZIER. Long-standing persistent atrial fibrillation - s/p CM4. Predominant postop rhythm Vpaced. Lower pacer rate increased to 80 bpm. Coumadin for INR 2-3 x 3 mo , then likely can revert to Xarelto if ongoing anticoagulation needed. Chronic AF prophylaxis with Tikosyn resumed. Acute expected blood loss anemia - Stable without the need for blood product transfusions. 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 Plan: Resume home lasix regimen. Cont to hold Coumadin. Cont inc activity as tolerated. Baseline postop echo today. Dispo - Anticipate home with C vs SNF on 08/31/17 06:44 Subjective: Doing ok. Improving strength and stamina. No acute concerns. Objective: Vital Signs Temp Pulse Resp BP Pulse Ox 36.7 C 91 17 108/67 94 08/31/17 03:17 08/31/17 03:17 08/31/17 03:17 08/31/17 03:17 08/31/17 03:17 Microbiology 08/28/17 08:45 Gram Stain - Final Neck - Other Laboratory Results 08/30/17 04:25 08/30/17 04:25 08/30/17 08/31/17 09/01/17 05:59 05:59 05:59 Intake Total 1355 1350 Output Total 1475 Balance -120 1350 PT 21.2 SEC (12.0-15.0) H 08/30/17 04:25 INR 1.82 (0.83-1.16) H 08/30/17 04:25 STRIP CUTTER eval yest for cough while drinking water demonstrated no impairment in swallow; diet resumed. Mostly Vpaced, intermittent AP and ENGRAVING PRESS OPERATOR. SBP remains marginal despite inc HR. Min suppl O2 req. Positive fluid balance. +5.5 kg overall. - Pending Discharge Pending Discharge Within 48 Hours: Yes Pending Discharge Date: 09/02/17 Pending Discharge Time: 11:00 Physical Exam - Physical Exam General Appearance: alert, no apparent distress Respiratory: decreased breath sounds (left base, o/w CTA) Cardiac/Chest: regular rate, rhythm, other (Sternum grossly stable. Sternotomy CDI. CT dressing CDI.) Abdomen: non-tender, soft Skin: warm/dry Extremities: other (no visible dependent edema) ICD10 Worksheet Patient Problems: Problems Problem Status Onset Acute blood loss anemia Acute S/P aortic valve replacement with bioprosthetic valve Acute ~08/28/17 Status post Maze operation for atrial fibrillation Acute ~08/28/17 s/p placement of LV epicardial lead Acute ~08/28/17 Aortic valve insufficiency Chronic Chronic anticoagulation Chronic Atrial fibrillation Chronic Cardiomyopathy, dilated, nonischemic Chronic
[2017-08-31] MEDS: TAMSULOSIN HCL 0.4 MG CAP PO SCH (08:04)
[2017-08-31] MEDS: DOFETILIDE 0.125 MG CAP PO SCH ×2 (08:04→22:35)
[2017-08-31] MEDS: PANTOPRAZOLE SODIUM 40 MG TAB PO SCH (08:04)
[2017-08-31] MEDS: ASPIRIN 81 MG CHEWABLE TAB PO SCH (08:05)
[2017-08-31] MEDS: SENNOSIDES/DOCUSATE SODIUM TAB PO SCH (08:07)
[2017-08-31] MEDS ORDERED: POTASSIUM CL 20 MEQ TAB PO SCH (09:00)
[2017-08-31] MEDS: FUROSEMIDE 40 MG TAB PO SCH ×2 (09:44→14:42)
--- NOTE | 2017-08-31 10:38 | ASMTCMCOM ---
CM Note CM Note Notes: Met with patient and his daughter Tesha (who is hospitalist here). Anticipated d/c date is 09/02, and patient will be going home with home care. I contacted [facility] to give them heads up - pt will need RN/PT/OT. Family will transport him home. Current Case Management Discharge plan: home with [facility]. Patient's PCP is Narinder Yan in [place]. Date Signed: 08/31/2017 10:37 AM Electronically Signed By:Mar Rudd RN
[2017-08-31] MEDS ORDERED: NS 500 ML IV ONE ×2 (12:00→15:14)
--- NOTE | 2017-08-31 14:24 | ECHO ---
[email or web address] [address] [address] Main: [phone] Fax: Transthoracic Echocardiogram Name: LIOR MARY MR#: [id number] Study Date: 08/31/2017 Study Time: 09:56 AM Date of : 1935 Age: 82 year(s) Height: 182.9 cm (72 in.) Weight: 91.17 kg (201 lb.) BSA: 2.13 m2 Gender: Male Examination: Echo Indication: S/P AVR #25 Magna bioprosthesis Image Quality: Contrast: Requested by: Dariusz Cortez BP: 92 mmHg/59 mmHg Heart Rate: Rhythm: Indication: S/P AVR #25 Magna bioprosthesis Procedure Staff Director Of Digital Marketing: Desean Quesada Reading Physician: Quang Beasley Requesting Provider: Conclusions: 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 Mild mitral valve leaflet calcification is present. Mild mitral valve regurgitation is present. The aortic valve is a bioprosthesis. There is a #25 Magna bioprosthesis with a AV Mean PG of 13 mmHg. The pulmonary artery pressure is normal. Compared to previous AVR has occured. Measurements: Chambers Valvular Assessment AV/MV Valvular Assessment TV/PV Normal Normal Normal Name Value Range Name Value Range Name Value Range LVOTd 2.5 cm 2.5 cm mm AV Vmax: 2.39 m/s (1 m/s-1.7 TR Vmax: 2.59 mm/s ( - ) LVEF (BP): 47 % (>=55 %) m/s) TR PGmax: 27 mmHg ( - ) AV maxP mmHg ( - ) syst. PAP: 32 mmHg ( - ) AV meanP mmHg ( - ) LVOT Vmax: 0.70 m/s (0.7 m/s-1.1 m/s) KJ (Vmax): 1.4 cm2 ( - ) KJ (VTI): 1.5 cm ( - ) MV E Vmax: 0.82 m/s ( - ) Continued Measurements: Chambers Valvular Assessment AV/MV Valvular Assessment TV/PV Name Value Name Value Name Value LADs Lon.6 cm MV E/E' Septal: 36.80 CVP (est.): 5 mmHg LA Area: 23.3 cm2 MV E/E' Lateral: 38.50 Patient: LIOR MARY Study Date: 08/31/2017 Page 1 of 2 09:56 AM LA Volume: 76 ml LA Volume Index: 35.7 ml/m2 Findings: Left Ventricle: Normal size left ventricle. 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 Normal RV function. There is a pacemaker lead noted in the right ventricle. Right Atrium: The right atrium is normal in size. Mitral Valve: Mild mitral valve leaflet calcification is present. Mild mitral valve regurgitation is present. Aortic Valve: The aortic valve is a bioprosthesis. There is a #25 Magna bioprosthesis with a AV Mean PG of 13 mmHg. Tricuspid Valve: The tricuspid valve appears normal. Mild tricuspid regurgitation is present. The pulmonary artery pressure is normal. Pulmonic Valve: Pulmonary valve not visualized. Pericardium: No pericardial effusion. Exam Comments: There was only Apical 4C and 2C views available due to lung interference. Good images and gradients obtained from the apical views. (No Signature Object) Patient: LIOR MARY Study Date: 08/31/2017 Page 2 of 2 09:56 AM [id number]
[2017-08-31 14:39] LABS: HEMATOCRIT 26.4 % (40.0-51.0)
[2017-08-31] MEDS: VENLAFAXINE XR 75 MG CAP PO SCH (19:10)
[2017-09-01] MEDS: SENNOSIDES/DOCUSATE SODIUM TAB PO SCH ×3 (00:06→21:56)
[2017-09-01] MEDS: LEVOTHYROXINE 75 MCG TAB PO SCH (05:36)
[2017-09-01 06:07] LABS: HEMOGLOBIN 9.7 g/dL (13.7-17.5); MEAN CELL HEMOGLOBIN 32.3 pg (27.9-34.1); MEAN CELL HEMOGLOBIN CONCENTR. 34.6 g/dL (32.4-36.7); MEAN CELL VOLUME 93.3 fL (81.5-99.8); RED CELL DISTRIBUTION WIDTH 13.2 % (11.5-15.2)
--- NOTE | 2017-09-01 06:13 | SOAPPROG ---
SOAP Progress Note Assessment/Plan: POD #4: AVR with #25 Magna bioprosthesis, Rodriguez-Maze IV, left ventricular lead placement tunneled to AICD pocket Severe AI s/p bioprosthetic AVR - stable. Long-standing persistent atrial fibrillation s/p CM4 - Coumadin for INR 2-3 duration dependent on rhythm. Acute blood loss anemia - s/p 1 unit blood yesterday for hypotension with adequate response. 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 LANCE/ARB held d/t low blood pressure. h/o AICD placement s/p LV lead placement tunnelled to pacer pocket - for future management as per cardiology. r/o dysphagia - CONFECTIONERY MAKER cleared pt for regular diet. Stable. Right effusion - for drainage with IR today. Subjective: No complaints. Objective: Vital Signs Temp Pulse Resp BP Pulse Ox 36.9 C 88 20 114/84 H 96 09/01/17 05:30 09/01/17 05:30 09/01/17 05:30 09/01/17 05:30 09/01/17 05:30 Microbiology 08/28/17 08:45 Gram Stain - Final Neck - Other Laboratory Results 09/01/17 05:45 08/31/17 09/01/17 09/02/17 05:59 05:59 05:59 Intake Total 1350 2575 Output Total 650 Balance 1350 1925 PT 29.6 SEC (12.0-15.0) H D 08/31/17 06:00 INR 2.82 (0.83-1.16) H 08/31/17 06:00 Physical Exam - Physical Exam General Appearance: WD/WN, alert, no apparent distress EENT: No scleral icterus (R), No scleral icterus (L) Neck: normal inspection Respiratory: No respiratory distress Cardiac/Chest: other (paced) Abdomen: non-tender, soft, No distended Skin: normal color, warm/dry Extremities: No pedal edema Neuro/Psych: no motor/sensory deficits, alert, normal mood/affect, oriented x 3 ICD10 Worksheet Patient Problems: Problems Problem Status Onset Acute blood loss anemia Acute S/P aortic valve replacement with bioprosthetic valve Acute ~08/28/17 Status post Maze operation for atrial fibrillation Acute ~08/28/17 s/p placement of LV epicardial lead Acute ~08/28/17 Aortic valve insufficiency Chronic Chronic anticoagulation Chronic Atrial fibrillation Chronic Cardiomyopathy, dilated, nonischemic Chronic
[2017-09-01 06:18] LABS: INR 2.01 (0.83-1.16); PROTIME(PATIENT) 22.8 SEC (12.0-15.0)
[2017-09-01 06:23] LABS: ANION GAP 9 mEq/L (8-16); CALCIUM 8.1 mg/dL (8.5-10.4); CARBON DIOXIDE 28 mEq/l (22-31); CHLORIDE 105 mEq/L (97-110); CREATININE 0.7 mg/dL (0.7-1.3); GLOMERULAR FILTRATION RATE > 60; GLUCOSE 100 mg/dL (70-100); POTASSIUM 4.1 mEq/L (3.5-5.2); SODIUM 142 mEq/L (134-144)
[2017-09-01] MEDS ORDERED: FUROSEMIDE 40 MG TAB PO SCH (09:00)
[2017-09-01] MEDS: TAMSULOSIN HCL 0.4 MG CAP PO SCH (09:02)
[2017-09-01] MEDS: DOFETILIDE 0.125 MG CAP PO SCH ×2 (09:02→20:33)
[2017-09-01] MEDS: FUROSEMIDE 20 MG TAB PO SCH ×2 (09:02→15:37)
[2017-09-01] MEDS: ASPIRIN 81 MG CHEWABLE TAB PO SCH (09:02)
[2017-09-01] MEDS: PANTOPRAZOLE SODIUM 40 MG TAB PO SCH (09:03)
[2017-09-01] MEDS ORDERED: LIDOCAINE 1% 300 MG/30 ML SDV ONE ×2 (12:33→21:30)
--- NOTE | 2017-09-01 15:02 | ASMTCMCOM ---
CM Note CM Note Notes: 09/01/2017 Case Management Note Met w/pt, Tonya and teleconferenced in daughter Dr. Wayne to discuss desire for SNF Rehab. After discussing options sent referrals to [facility] in [place], [facility] in [place] and [facility] in [place]. Case Management d/c poc: to SNF rehab pending acceptance when medically stable. Case Management to follow. Date Signed: 09/01/2017 03:01 PM Electronically Signed By:Tala Villalba RN
[2017-09-01] MEDS ORDERED: NS 500 ML IV ONE (15:46)
[2017-09-01] MEDS ORDERED: WARFARIN SODIUM 1 MG TAB PO ONE (16:00)
[2017-09-01] MEDS: VENLAFAXINE XR 75 MG CAP PO SCH (20:33)
[2017-09-01 22:58] LABS: HEMATOCRIT 32.8 % (40.0-51.0); HEMOGLOBIN 11.3 g/dL (13.7-17.5)
[2017-09-01 23:14] LABS: ANION GAP 7 mEq/L (8-16); CALCIUM 7.8 mg/dL (8.5-10.4); CARBON DIOXIDE 28 mEq/l (22-31); CHLORIDE 100 mEq/L (97-110); CREATININE 0.7 mg/dL (0.7-1.3); GLOMERULAR FILTRATION RATE > 60; GLUCOSE 138 mg/dL (70-100); POTASSIUM 3.7 mEq/L (3.5-5.2); SODIUM 135 mEq/L (134-144)
[2017-09-02] MEDS: LEVOTHYROXINE 75 MCG TAB PO SCH (05:14)
[2017-09-02 05:37] LABS: HEMATOCRIT 32.8 % (40.0-51.0); HEMOGLOBIN 11.1 g/dL (13.7-17.5)
[2017-09-02 05:44] LABS: INR 1.61 (0.83-1.16); PROTIME(PATIENT) 19.3 SEC (12.0-15.0)
[2017-09-02 05:56] LABS: ANION GAP 8 mEq/L (8-16); CARBON DIOXIDE 28 mEq/l (22-31); CHLORIDE 105 mEq/L (97-110); CREATININE 0.7 mg/dL (0.7-1.3); GLOMERULAR FILTRATION RATE > 60; GLUCOSE 114 mg/dL (70-100); POTASSIUM 3.9 mEq/L (3.5-5.2); SODIUM 141 mEq/L (134-144)
--- NOTE | 2017-09-02 06:41 | SOAPPROG ---
SOAP Progress Note Assessment/Plan: Assessment: POD#5 AVR#25 Magna bioprosthesis, Rodriguez-Maze IV, left ventricular lead placement tunneled to AICD pocket POD#1 Rt thoracentesis 500ml Severe AI - s/p bioprosthetic AVR. Tubes and TCPWs out. Antithrombotic prophylaxis as per rhythm. Presence AICD for NIDCM - Epicardial LV lead placed and tunnelled to pacer pocket to secure PNEUMATIC TUBE REPAIRER as dictated by cards. Long-standing persistent atrial fibrillation - s/p CM4. Predominant postop rhythm Vpaced. Lower pacer rate increased to 80 bpm. Coumadin for INR 2-3 x 3 mo , then likely can revert to Xarelto if ongoing anticoagulation needed. Chronic AF prophylaxis with Tikosyn resumed. Acute expected blood loss anemia - Stable s/p 3u PRBC. Dilated non-ischemic cardiomyopathy with chronic class II sCHF and nocturnal O2 use - Use of lasix compl by orthostatic hypotension. Bedside echo neg for AI/PVL , atrial dilatation, sig MR/TR, RVSD, worsened LV systolic fx or pericardial effusion. Fluid resuscitation compl by CHF req tx back to ICU for pressor support and closer monitoring. Acute respiratory insufficiency - Exacerbated by fluid overload with small-mod bilat pleural effusions and atelectasis. Decreased dyspnea, decreased suppl O2 requirement and improved UOP on low dose dopa. May benefit from IPPB and left thoracentesis. to bring in home CPAP. Thyroid cyst - Incidentally punctured during intraop line placement. Cx neg. Plan: Wean dopa to SBP > 100. Hold Coumadin for possible left thoracentesis. Cont IV diuresis. 09/02/17 06:31 Subjective: Doing ok. Less breathless tho still easily winded with minimal activity. + appetite. +BM. Adequate analgesia. Objective: Vital Signs Temp Pulse Resp BP Pulse Ox 37.4 C 105 H 19 123/59 H 95 09/01/17 21:00 09/02/17 06:00 09/02/17 06:00 09/02/17 06:00 09/02/17 06:00 Microbiology 08/28/17 08:45 Gram Stain - Final Neck - Other Laboratory Results 09/02/17 05:26 09/02/17 05:26 09/01/17 09/02/17 09/03/17 05:59 05:59 05:59 Intake Total 2650 1973 Output Total 950 1800 Balance 1700 173 PT 19.3 SEC (12.0-15.0) H 09/02/17 05:26 INR 1.61 (0.83-1.16) H 09/02/17 05:26 Dopa at 1 mcg for MAP > 70. Improved fluid balance. Stable renal fx. CT last noc notable for small-mod bilat pl eff, L>R with compressive atelectasis posteriorly. Physical Exam - Physical Exam General Appearance: alert, no apparent distress Respiratory: decreased breath sounds (left base with e to a changes) Cardiac/Chest: regular rate, rhythm, other (Sternotomy and CT sites CDI) Abdomen: non-tender, soft Skin: warm/dry Extremities: other (no visible edema) ICD10 Worksheet Patient Problems: Problems Problem Status Onset Acute blood loss anemia Acute S/P aortic valve replacement with bioprosthetic valve Acute ~08/28/17 Status post Maze operation for atrial fibrillation Acute ~08/28/17 s/p placement of LV epicardial lead Acute ~08/28/17 Aortic valve insufficiency Chronic Chronic anticoagulation Chronic Atrial fibrillation Chronic Cardiomyopathy, dilated, nonischemic Chronic
[2017-09-02] MEDS: TAMSULOSIN HCL 0.4 MG CAP PO SCH (10:14)
[2017-09-02] MEDS: PANTOPRAZOLE SODIUM 40 MG TAB PO SCH (10:14)
[2017-09-02] MEDS: ASPIRIN 81 MG CHEWABLE TAB PO SCH (10:14)
[2017-09-02] MEDS: SENNOSIDES/DOCUSATE SODIUM TAB PO SCH ×2 (10:15→23:35)
[2017-09-02] MEDS ORDERED: LIDOCAINE 1% 300 MG/30 ML SDV ONE (10:36)
[2017-09-02] MEDS: DOFETILIDE 0.125 MG CAP PO SCH ×2 (11:12→21:43)
--- NOTE | 2017-09-02 14:05 | ASMTCMCOM ---
CM Note CM Note Notes: Spoke with patient's and daughter who confirmed they are supportive of SNF rehab for patient at d/c. Mina from [facility] came to visit with the family today for an informational session only. Patient's Tonya has not made a decision about which facility they want patient to go to.CM will follow. Date Signed: 09/02/2017 02:05 PM Electronically Signed By:Aura Nicholas LCSW
[2017-09-02] MEDS: FUROSEMIDE 40 MG/4 ML VIAL IVP SCH (15:30)
[2017-09-02] MEDS ORDERED: WARFARIN SODIUM 2.5 MG TAB PO ONE (16:00)
[2017-09-02] MEDS ORDERED: PROTOCOL POTASSIUM 1 DOSE MISC PRN (16:24)
[2017-09-02] MEDS: VENLAFAXINE XR 75 MG CAP PO SCH (17:16)
[2017-09-02] MEDS ORDERED: FUROSEMIDE 40 MG/4 ML VIAL IVP ONE ×2 (18:00→19:02)
[2017-09-02 18:04] LABS: POTASSIUM 3.7 mEq/L (3.5-5.2)
[2017-09-02] MEDS ORDERED: POTASSIUM CL 10 MEQ TAB PO ONE (18:33)
[2017-09-02] MEDS ORDERED: POTASSIUM Cl (KCl) 100 ML IV SCH (19:15)
[2017-09-02] MEDS: POTASSIUM Cl (KCl) 10 MEQ in NS 100 ML IV SCH ×2 (23:34→23:35)
[2017-09-03] MEDS ORDERED: FUROSEMIDE 40 MG/4 ML VIAL IVP ONE (01:04)
[2017-09-03 05:30] LABS: ANION GAP 11 mEq/L (8-16); CALCIUM 8.4 mg/dL (8.5-10.4); CARBON DIOXIDE 30 mEq/l (22-31); CHLORIDE 102 mEq/L (97-110); CREATININE 0.8 mg/dL (0.7-1.3); GLOMERULAR FILTRATION RATE > 60; GLUCOSE 112 mg/dL (70-100); POTASSIUM 3.5 mEq/L (3.5-5.2); SODIUM 143 mEq/L (134-144)
[2017-09-03 05:33] LABS: INR 1.55 (0.83-1.16); PROTIME(PATIENT) 18.7 SEC (12.0-15.0)
[2017-09-03] MEDS ORDERED: POTASSIUM CL 20 MEQ TAB PO ONE ×2 (05:37→06:54)
[2017-09-03] MEDS: LEVOTHYROXINE 75 MCG TAB PO SCH (06:12)
--- NOTE | 2017-09-03 06:47 | SOAPPROG ---
SOAP Progress Note Assessment/Plan: POD #6: AVR with #25 Magna bioprosthesis, Rodriguez-Maze IV, left ventricular lead placement tunneled to AICD pocket Severe AI s/p bioprosthetic AVR - stable. Long-standing persistent atrial fibrillation s/p CM4 - Coumadin for INR 2-3. Acute blood loss anemia - H/H stable. Acute on chronic systolic CHF, class II - Continue Lasix. LANCE/ARB held d/t low blood pressure. h/o AICD placement s/p LV lead placement tunnelled to pacer pocket - for future management as per cardiology. r/o dysphagia - BOOK STORE ASSOCIATE cleared pt for regular diet. Stable. B/L pluerual effusions - s/p drainage (L 650, R 500) Subjective: Still lethargic but denies dyspnea/chest pain. Objective: Vital Signs Temp Pulse Resp BP Pulse Ox 37 C 90 16 109/72 96 09/03/17 04:00 09/03/17 06:00 09/03/17 06:00 09/03/17 06:00 09/03/17 06:00 Microbiology 08/28/17 08:45 Gram Stain - Final Neck - Other Laboratory Results 09/02/17 05:26 09/03/17 05:00 09/02/17 09/03/17 09/04/17 05:59 05:59 05:59 Intake Total 1973 1688 Output Total 1800 4580 Balance 173 -2892 PT 18.7 SEC (12.0-15.0) H 09/03/17 04:38 INR 1.55 (0.83-1.16) H 09/03/17 04:38 Physical Exam - Physical Exam General Appearance: WD/WN, alert, no apparent distress EENT: No scleral icterus (R), No scleral icterus (L) Neck: normal inspection Respiratory: No respiratory distress Cardiac/Chest: other (paced) Abdomen: non-tender, soft, No guarding Skin: normal color, warm/dry Extremities: No pedal edema Neuro/Psych: no motor/sensory deficits, alert, normal mood/affect, oriented x 3 ICD10 Worksheet Patient Problems: Problems Problem Status Onset Acute blood loss anemia Acute S/P aortic valve replacement with bioprosthetic valve Acute ~08/28/17 Status post Maze operation for atrial fibrillation Acute ~08/28/17 s/p placement of LV epicardial lead Acute ~08/28/17 Aortic valve insufficiency Chronic Chronic anticoagulation Chronic Atrial fibrillation Chronic Cardiomyopathy, dilated, nonischemic Chronic
[2017-09-03] MEDS: TAMSULOSIN HCL 0.4 MG CAP PO SCH (09:45)
[2017-09-03] MEDS: DOFETILIDE 0.125 MG CAP PO SCH ×2 (09:45→22:19)
[2017-09-03] MEDS: ASPIRIN 81 MG CHEWABLE TAB PO SCH (09:45)
[2017-09-03] MEDS: PANTOPRAZOLE SODIUM 40 MG TAB PO SCH (09:45)
[2017-09-03] MEDS: SENNOSIDES/DOCUSATE SODIUM TAB PO SCH ×2 (10:29→22:20)
[2017-09-03] MEDS: TORSEMIDE 20 MG TAB PO SCH ×2 (11:05→15:23)
[2017-09-03] MEDS: FUROSEMIDE 40 MG/4 ML VIAL IVP SCH (11:33)
--- NOTE | 2017-09-03 11:46 | ASMTCMCOM ---
CM Note CM Note Notes: CM met w/ pt and family to discuss dispo planning. Family would like inpatient rehab vs [facility]. CM to follow. Plan: Inpatient rehab vs [facility] Date Signed: 09/03/2017 11:46 AM Electronically Signed By:KENDALL Devlin
--- NOTE | 2017-09-03 11:57 | CPEKG ---
Heart Rate: 125 RR Interval: 480 QRSD Interval: 170 QT Interval: 388 QTC Interval: 560 P [place]: 0 QRS [place]: -25 T Wave [place]: 163 EKG Severity - ABNORMAL ECG - EKG Impression: VENTRICULAR-PACED COMPLEXES EKG Impression: LEFT BUNDLE BRANCH BLOCK EKG Impression: Possible atrial flutter Electronically Signed By: Sanjay Soni 04-Sep-2017 08:33:22
[2017-09-03] MEDS ORDERED: POTASSIUM CL 20 MEQ TAB PO SCH (15:00)
[2017-09-03] MEDS ORDERED: WARFARIN SODIUM 3 MG TAB PO ONE ×2 (16:00→16:30)
[2017-09-03] MEDS ORDERED: CARVEDILOL 3.125 MG TAB PO SCH (16:30)
[2017-09-03] MEDS ORDERED: ALBUMIN 5% 500 ML IV ONE (16:35)
--- NOTE | 2017-09-03 16:45 | PDCARPN ---
Cardiology Progress Note Chief Complaint: Atrial flutter Assessment/Plan: Assessment: 1. sp AVR 2. sp Maze 3. Atrial flutter - likely R sided, L sided AT remains in differential Plan: 1. INR subtherapeutic, given additional 3 mg of warfarin today 2. rebecca Rodrigues, he is not comfortable with us giving the patient BB 3. Continue dofetilide 4. Plan PETE guided CV tomorrow AM. 09/03/17 16:42 Subjective: Feels well, denies CP or SOA Objective: Vital Signs (8 Hrs) Temp Pulse Resp BP Pulse Ox 09/03/17 16:17 36.7 C 113 H 17 93/65 L 96 09/03/17 15:02 104 H 89 L 09/03/17 11:59 36.8 C 112 H 18 104/58 L 96 09/03/17 10:00 95 18 96/63 L 95 Intake/Output (24 Hrs) 09/02/17 09/03/17 09/04/17 11:59 11:59 11:59 Intake Total 2173 1988 236 Output Total 1800 5200 500 Balance 373 -3212 -264 Intake: Oral (ml) 1170 1950 236 IV Intake (ml) 500 IV Infused (ml) 103 38 DOPamine/DEXTROSE 250 ml 103 38 @ 3 MCG/KG/MIN 10.496 mls /hr IV CONT MARY ANNE Rx#: [id number] Packed Red Blood Cells ( 400 ml) Output: Urine (ml) 1300 4550 500 Incontinence 2250 Toilet 750 Urinal 550 2300 500 Thoracentesis 500 650 Other: Weight 95.5 kg 90.5 kg Number of Voids Toilet 2 Urinal 1 Number of Stools Incontinence 1 Toilet 1 Urinal 1 1 Result Diagrams: 09/02/17 05:26 09/03/17 05:00 EKG: c.w AFL Telemetry: AFL with V rate 110-130 bpm ICD10 Worksheet Patient Problems: Problems Problem Status Onset Acute blood loss anemia Acute S/P aortic valve replacement with bioprosthetic valve Acute ~08/28/17 Status post Maze operation for atrial fibrillation Acute ~08/28/17 s/p placement of LV epicardial lead Acute ~08/28/17 Aortic valve insufficiency Chronic Chronic anticoagulation Chronic Atrial fibrillation Chronic Cardiomyopathy, dilated, nonischemic Chronic
[2017-09-03] MEDS: VENLAFAXINE XR 75 MG CAP PO SCH (17:57)
[2017-09-03 17:59] LABS: POTASSIUM 4.1 mEq/L (3.5-5.2)
[2017-09-04] MEDS: LEVOTHYROXINE 75 MCG TAB PO SCH (04:59)
[2017-09-04 07:10] LABS: INR 1.84 (0.83-1.16); PROTIME(PATIENT) 21.3 SEC (12.0-15.0)
[2017-09-04 07:11] LABS: ANION GAP 11 mEq/L (8-16); APTT 35.6 SEC (23.0-38.0); CALCIUM 8.7 mg/dL (8.5-10.4); CARBON DIOXIDE 31 mEq/l (22-31); CHLORIDE 99 mEq/L (97-110); CREATININE 0.8 mg/dL (0.7-1.3); GLOMERULAR FILTRATION RATE > 60; GLUCOSE 113 mg/dL (70-100); POTASSIUM 3.9 mEq/L (3.5-5.2); SODIUM 141 mEq/L (134-144)
[2017-09-04] MEDS ORDERED: POTASSIUM CL 10 MEQ TAB PO ONE (07:57)
--- NOTE | 2017-09-04 08:55 | SOAPPROG ---
SOAP Progress Note Assessment/Plan: Assessment: POD#7 AVR#25 Magna bioprosthesis, Rodriguez-Maze IV, left ventricular lead placement tunneled to AICD pocket POD#3 Rt thoracentesis 500ml POD#1 Left thoracentesis 650 ml Severe AI - s/p bioprosthetic AVR. Tubes and TCPWs out. Antithrombotic prophylaxis as per rhythm. Presence AICD for NIDCM - Epicardial LV lead placed and tunnelled to pacer pocket to secure FISH HATCHERY ASSISTANT as dictated by cards. Long-standing persistent atrial fibrillation - s/p CM4. Predominant postop rhythm Vpaced. Lower pacer rate increased to 80 bpm. Intermittent rapid AT/ flutter since yest and DC CVSN planned for later today. Coumadin for INR 2-3 x 3 mo, then likely can revert to Xarelto if ongoing anticoagulation needed. Chronic AF prophylaxis with Tikosyn resumed. QTc noted to be > 500. Acute expected blood loss anemia - Stable s/p 3u PRBC. Dilated non-ischemic cardiomyopathy with acute on chronic sCHF - Use of lasix compl by orthostatic hypotension. Bedside echo neg for AI/PVL, atrial dilatation , sig MR/TR, RVSD, worsened LV systolic fx or pericardial effusion. Fluid resuscitation compl by CHF req temporary tx back to ICU for pressor support and closer monitoring. Now appears to be medically compensated. Acute on chronic respiratory insufficiency (nocturnal O2 use) - Exacerbated by fluid overload with small-mod bilat pleural effusions and atelectasis. Symptomatically improved post intensified diuresis and bilateral thoracenteses. home CPAP. Thyroid cyst - Incidentally punctured during intraop line placement. Cx neg. Plan: DC CVSN per cards. Remove central line. Decr Demadex 40 mg/KCl 20meq to once daily. Watch QTc. Cont Coumadin. 2.5 mg today. Dispo - SNF (? [facility]) next 2-3 days. 09/04/17 08:50 Subjective: Doing ok. Improving sleep and appetite. Limiting activity d/t exacerbation rapid HR. No acute concerns. Objective: Vital Signs Temp Pulse Resp BP Pulse Ox 36.6 C 96 15 121/84 H 98 09/04/17 07:00 09/04/17 07:00 09/04/17 07:00 09/04/17 07:00 09/04/17 07:00 Microbiology 08/28/17 08:45 Gram Stain - Final Neck - Other Laboratory Results 09/02/17 05:26 09/04/17 06:30 09/03/17 09/04/17 09/05/17 05:59 05:59 05:59 Intake Total 1688 1236 Output Total 4580 2670 Balance -2892 -1434 PT 21.3 SEC (12.0-15.0) H 09/04/17 06:30 INR 1.84 (0.83-1.16) H 09/04/17 06:30 Intermittent Vpacing, variable rates > 90. No hypotension. Stable sats on 3 Lpm. CXR-> improved aeration with min residual pleural effusions. Vigorous diuresis on BID demadex. Now within 3 kg of admission wt. INR on the rise. Physical Exam - Physical Exam General Appearance: alert, no apparent distress Respiratory: crackles (coarse bilat bases, o/w CTA) Cardiac/Chest: irregularly irregular, other (Sternotomy and CT sites CDI) Abdomen: non-tender, soft Skin: warm/dry Extremities: other (no visible edema) ICD10 Worksheet Patient Problems: Problems Problem Status Onset Acute blood loss anemia Acute S/P aortic valve replacement with bioprosthetic valve Acute ~08/28/17 Status post Maze operation for atrial fibrillation Acute ~08/28/17 s/p placement of LV epicardial lead Acute ~08/28/17 Aortic valve insufficiency Chronic Chronic anticoagulation Chronic Atrial fibrillation Chronic Cardiomyopathy, dilated, nonischemic Chronic
[2017-09-04] MEDS ORDERED: FUROSEMIDE 40 MG TAB PO SCH (09:00)
[2017-09-04] MEDS: TAMSULOSIN HCL 0.4 MG CAP PO SCH (10:33)
[2017-09-04] MEDS: ASPIRIN 81 MG CHEWABLE TAB PO SCH (10:33)
[2017-09-04] MEDS: PANTOPRAZOLE SODIUM 40 MG TAB PO SCH (10:33)
[2017-09-04] MEDS: SENNOSIDES/DOCUSATE SODIUM TAB PO SCH ×2 (10:34→22:44)
--- NOTE | 2017-09-04 10:58 | CPEKG ---
Heart Rate: 100 RR Interval: 600 P-R Interval: 166 QRSD Interval: 142 QT Interval: 424 QTC Interval: 547 P [place]: 0 QRS [place]: 260 T Wave [place]: 104 EKG Severity - ABNORMAL ECG - EKG Impression: VENTRICULAR-PACED COMPLEXES Electronically Signed By: Todd Banks 04-Sep-2017 20:25:51
[2017-09-04] MEDS: DOFETILIDE 0.125 MG CAP PO SCH ×2 (11:09→22:44)
--- NOTE | 2017-09-04 12:43 | ASMTCMCOM ---
CM Note CM Note Notes: CM spoke w/ Dr. Rodrigues regarding d/c POC. Dr. Rodrigues is recommending that pt goes to [facility]. CM met w/ pt and for dispo planning. and daughter will most likely tour [facility] today. will notify CM of the facility that they will go w/. CM to follow. Plan: [facility] vs inpt rehab at [facility] Date Signed: 09/04/2017 12:43 PM Electronically Signed By:KENDALL Devlin
--- NOTE | 2017-09-04 14:21 | PDANEPAE ---
ANE History of Present Illness here for PETE/CV ANE Past Medical History - Cardiovascular History Hx Hypertension: Yes Hx Arrhythmias: Yes Hx Chest Pain: No Hx Coronary Artery / Peripheral Vascular Disease: No Hx CHF / Valvular Disease: Yes Hx Palpitations: No Cardiovascular History Comment: Rashad pacer-hx of A fib. AI. [place]ler CP,SOB - Pulmonary History Hx COPD: No Hx Asthma/Reactive Airway Disease: No Hx Recent Upper Respiratory Infection: No Hx Oxygen in Use at Home: Yes O2 in Use at Home (L/minute): O2 concentrator at night Hx Sleep Apnea: Yes Sleep Apnea Screening Result - Last Documented: Positive Pulmonary History Comment: when living in [place], [place] Sats ran 94%. In [place] Sats run 96-99%. Dx CORDELIA- NO CPAP, only O2 at nite. - Neurologic History Hx Cerebrovascular Accident: No Hx Seizures: No Hx Dementia: No - Endocrine History Hx Diabetes: No Endocrine History Comment: hypothyroid - Renal History Hx Renal Disorders: Yes Renal History Comment: BPH on Flomax - Liver History Hx Hepatic Disorders: No - Neurological & Psychiatric Hx Hx Neurological and Psychiatric Disorders: Yes Neurological / Psychiatric History Comment: depression-on Rx - Cancer History Hx Cancer: No - Congenital Disorder History Hx Congenital Disorders: No - GI History Hx Gastrointestinal Disorders: No - Other Health History Other Health History: skin-bruises sl more w/Xarelto - Chronic Pain History Chronic Pain: No - Surgical History Prior Surgeries: cataract extractions w/IOL. pacemaker insertion 2-14. sx on R epididymis. fatty tumor excised. R bunionectomy ANE Review of Systems Review of Systems: - Exercise capacity METS (RN): 4 METS - Pacemaker Pacemaker Assembler Lay Ups: Medtronic Pacemaker Model: CRTD VIVA XT IS1/DF4 Pacemaker Mode: DDI Pacemaker Set Rate: 90 Date Pacemaker Last Checked: 06-03-2017 ANE Patient History - Allergies Allergies/Adverse Reactions: No Known Allergies Allergy (Unverified 08/22/13 11:30) - Home Medications Home Medications: Levothyroxine [Synthroid 75 mcg (*)] 75 mcg PO DAILY06 08/22/13 [Last Taken ] Venlafaxine Xr [Effexor Xr 75MG (*)] 225 mg PO DAILY18 08/22/13 [Last Taken ] Carvedilol [Coreg (*)] 25 mg PO BIDMEAL 11/22/13 [Last Taken 08/26/17] Spironolactone [Aldactone 25 MG (*)] 6.25 mg PO DAILY 11/22/13 [Last Taken 08/26] Furosemide [Lasix 40 MG (*)] 40 mg PO BID 08/19/17 [Last Taken 08/26/17] Tamsulosin HCl [Flomax 0.4 MG (*)] 0.4 mg PO DAILY 08/19/17 [Last Taken 08/26/17 ] Losartan Potassium [Cozaar 50 mg (*)] 50 mg PO DAILY 08/25/17 [Last Taken ] Rivaroxaban [Xarelto 10mg (*)] 20 mg PO DAILY 08/25/17 [Last Taken 08/25/17] - NPO status NPO Since - Liquids (Date): 08/28/17 NPO Since - Liquids (Time): 00:00 NPO Since - Solids (Date): 08/28/17 NPO Since - Solids (Time): 00:00 - Smoking Hx Smoking Status: Never smoked ANE Labs/Vital Signs - Labs Result Diagrams: 09/02/17 05:26 09/04/17 06:30 - Vital Signs Blood Pressure: 116/79 Heart Rate: 130 Respiratory Rate: 12 O2 Sat (%): 96 Height: 183 cm Weight: 88.3 kg ANE Physical Exam - Airway Neck exam: FROM Mallampati Score: Class 1 Mouth exam: normal dental/mouth exam - Pulmonary Pulmonary: no respiratory distress - Cardiovascular Cardiovascular: regular rate and rhythym, irregularly irregular - ASA Status ASA Status: III ANE Anesthesia Plan Anesthesia Plan: GA with mask
[2017-09-04] MEDS ORDERED: PROPOFOL/EMULSION 500 MG/50 ML BOTTLE IV ONE (14:24)
[2017-09-04] MEDS ORDERED: POTASSIUM CL 20 MEQ TAB PO ONE ×2 (15:00→17:45)
[2017-09-04] MEDS ORDERED: TORSEMIDE 20 MG TAB PO ONE ×2 (15:00→17:45)
[2017-09-04] MEDS ORDERED: PROPOFOL 200 MG/20 ML VIAL ONE (15:08)
--- NOTE | 2017-09-04 15:38 | CPEKG ---
Heart Rate: 86 RR Interval: 698 P-R Interval: 184 QRSD Interval: 196 QT Interval: 484 QTC Interval: 579 P Madison: -63 QRS Madison: -31 T Wave Madison: 77 EKG Severity - ABNORMAL ECG - EKG Impression: VENTRICULAR-PACED RHYTHM Electronically Signed By: Todd Banks 04-Sep-2017 20:25:40
--- NOTE | 2017-09-04 15:46 | POSTANESTH ---
Post Anesthetic Evaluation Cardiovascular Status: Normal, Stable Respiratory Status: Normal, Stable Level of Consciousness/Mental Status: Can Participate in Eval, Mildly Sleepy, Arousable Pain Control: Adequate, Prn Tx Ordered Nausea/Vomiting Control: Adequate, Prn Tx Ordered Complications Possibly Related to Anesthesia: None Noted
[2017-09-04] MEDS ORDERED: WARFARIN SODIUM 2.5 MG TAB PO ONE (16:00)
[2017-09-04] MEDS: VENLAFAXINE XR 75 MG CAP PO SCH (17:53)
[2017-09-05 03:57] LABS: HEMATOCRIT 33.5 % (40.0-51.0); HEMOGLOBIN 11.2 g/dL (13.7-17.5)
[2017-09-05 04:05] LABS: INR 2.31 (0.83-1.16); PROTIME(PATIENT) 25.4 SEC (12.0-15.0)
[2017-09-05] MEDS: LEVOTHYROXINE 75 MCG TAB PO SCH (06:18)
--- NOTE | 2017-09-05 09:07 | SOAPPROG ---
<Barbara Kim - Last Filed: 09/05/17 12:03> SOAP Progress Note Assessment/Plan: Assessment: POD#8 AVR#25 Magna bioprosthesis, Rodriguez-Maze IV, left ventricular lead placement tunneled to AICD pocket POD#4 Rt thoracentesis 500ml POD#2 Left thoracentesis 650 ml Severe AI - s/p bioprosthetic AVR. Tubes and TCPWs out. Antithrombotic prophylaxis as per rhythm. Presence AICD for NIDCM - Epicardial LV lead placed and tunnelled to pacer pocket to secure INTEGRATED MARKETING SPECIALIST as dictated by cards. Long-standing persistent atrial fibrillation - s/p CM4. Predominant postop rhythm Vpaced. Lower pacer rate increased to 80 bpm. Intermittent rapid AT/ flutter as of POD#6 and DC CVSN yest with ASVP restored. Coumadin for INR 2-3 x 3 mo, then likely can revert to Xarelto if ongoing anticoagulation needed. Chronic AF prophylaxis with Tikosyn resumed. QTc noted to be > 500 but not felt to be significant as paced rhythm and ICD backup. Acute expected blood loss anemia - Stable s/p 3u PRBC. Dilated non-ischemic cardiomyopathy with acute on chronic sCHF - Use of lasix compl by orthostatic hypotension. Bedside echo neg for AI/PVL, atrial dilatation , sig MR/TR, RVSD, worsened LV systolic fx or pericardial effusion. Fluid resuscitation compl by CHF req temporary tx back to ICU for pressor support and closer monitoring. Now appears to be medically compensated. Staggered reintro of HF meds in progress. Acute on chronic respiratory insufficiency (nocturnal O2 use) - Exacerbated by fluid overload with small-mod bilat pleural effusions and atelectasis. Symptomatically improved post intensified diuresis and bilateral thoracenteses. Thyroid cyst - Incidentally punctured during intraop line placement. Cx neg. Plan: Cont Demadex 40 mg/KCl 20meq once daily. Start Coreg 3.125 mg BID. Cont Coumadin. 2 mg today. Dispo - SNF (? [facility]) tomorrow or 09/05/17 09:02 Subjective: Doing ok. Improving stamina and mobility. Unaware of change in rhythm. Son and evaluating SNFs. Objective: Vital Signs Temp Pulse Resp BP Pulse Ox 36.6 C 89 16 122/79 H 92 09/05/17 07:35 09/05/17 07:35 09/05/17 07:35 09/05/17 07:35 09/05/17 07:35 Microbiology 08/28/17 08:45 Gram Stain - Final Neck - Other Laboratory Results 09/05/17 03:05 09/05/17 03:05 09/04/17 09/05/17 09/06/17 05:59 05:59 05:59 Intake Total 1236 1200 Output Total 2670 1125 Balance -1434 75 PT 25.4 SEC (12.0-15.0) H 09/05/17 03:05 INR 2.31 (0.83-1.16) H 09/05/17 03:05 Holding ASVP since DC CVSN yest. SBPs more robust. Stable 2 Lpm suppl O2 req. Adequate fluid balance. Down 2 kg. Within 2.5kg of baseline wt. Labs stable. Therapeutic INR. - Pending Discharge Pending Discharge Within 48 Hours: Yes Pending Discharge Date: 09/07/17 Pending Discharge Time: 11:00 ICD10 Worksheet Patient Problems: Problems Problem Status Onset Acute blood loss anemia Acute S/P aortic valve replacement with bioprosthetic valve Acute ~08/28/17 Status post Maze operation for atrial fibrillation Acute ~08/28/17 s/p placement of LV epicardial lead Acute ~08/28/17 Aortic valve insufficiency Chronic Chronic anticoagulation Chronic Atrial fibrillation Chronic Cardiomyopathy, dilated, nonischemic Chronic <Maricarmen Howard - Last Filed: 09/05/17 20:10> SOAP Progress Note Assessment/Plan: No major issues or problems - back in paced rhythm after cardioversion yesterday. Overall doing quite well. Agree with assessment and plan by Barbara Kim PA-C. Likely to rehab in next 1-2 days pending choice by family as well as bed availability. Objective: Vital Signs Temp Pulse Resp BP Pulse Ox 36.7 C 88 17 103/61 95 09/05/17 19:56 09/05/17 19:56 09/05/17 19:56 09/05/17 19:56 09/05/17 19:56 Laboratory Results 09/05/17 03:05 09/05/17 03:05 09/04/17 09/05/17 09/06/17 05:59 05:59 05:59 Intake Total 1236 1200 940 Output Total 3360 1125 825 Balance -1434 75 115 PT 25.4 SEC (12.0-15.0) H 09/05/17 03:05 INR 2.31 (0.83-1.16) H 09/05/17 03:05
[2017-09-05] MEDS: POTASSIUM CL 20 MEQ TAB PO SCH (09:42)
[2017-09-05] MEDS: ASPIRIN 81 MG CHEWABLE TAB PO SCH (09:42)
[2017-09-05] MEDS: PANTOPRAZOLE SODIUM 40 MG TAB PO SCH (09:42)
[2017-09-05] MEDS: CARVEDILOL 3.125 MG TAB PO SCH ×2 (09:42→17:19)
[2017-09-05] MEDS: TAMSULOSIN HCL 0.4 MG CAP PO SCH (09:42)
[2017-09-05] MEDS: TORSEMIDE 20 MG TAB PO SCH (09:43)
[2017-09-05] MEDS: SENNOSIDES/DOCUSATE SODIUM TAB PO SCH ×2 (09:48→20:17)
--- NOTE | 2017-09-05 10:23 | PDCARPN ---
Cardiology Progress Note Chief Complaint: Patient reports he would like to go home. Assessment/Plan: Assessment: 82-year-old male with noted history of severe AI, persist atrial fibrillation, nonischemic cardiomyopathy thought due to longstanding tachycardia, remote BiV AICD implant. Cardiac catheterization done on 08/27 showed normal coronary arteries. LVEF 50%. Underwent AO valve replacement (#25 magna bioprosthesis), Full Rodriguez Maze and LV lead placement on the 08/[address] Rodrigues. Evaluated by Dr. Soni on 09/03 for ongoing tachycardia, felt rhythm was atrial flutter. Patient has resumed home dofetilide. Started on warfarin therapy postoperatively. Underwent PETE/CV by Dr Bess yesterday. Today, since cardioversion, have patient has been maintaining a sense V paced rhythm. Occasional PAC and PVC noted on continuous cardiac monitoring. He denies of any palpitations or lightheadedness. Of signs of maintain stable. Morning laboratory work showing H&H stable at 11.2 and 33.5. INR 2.31, potassium 4.0. Plan: 1. Atrial fib/flutter: s/p MAZE and cardioversion, maintaining a sense , 100% V paced rhythm. No further arrhythmias noted since cardioversion. Patient to continue on dofetilide and will be started on coreg this morning, per CT surgery. Patient anticoagulation therapeutic on warfarin. QTC noted to be long at 579ms off of EKG 09/04 post CV, but this is a 100% V paced rhythm, and JT and JT index should be used instead. On the same EKG, I measure JT at 288 ( normal range 243-358) and JT Index at 103 (>112 is consider prolonged), which is acceptable. This was discussed with Dr Cristina. 2. Nonischemic cardiomyopathy: Ejection fraction noted to be 50% preoperative. Patient has Bi V AICD. Started on carvedilol as mentioned above. He does not appear to be fluid overloaded today. He has remained on Demadex , diuretic therapy at this time per CT surgery 3. AI: s/p aortic bioprosthetic valve implantation. Patient appears to be fairly euvolemic. Diuretic therapy per CT surgery. Patient should be followed up with Cardiology and EP services when released by CT surgery, we will sign off at this time. Please call with any questions or concerns. 09/05/17 10:16 Subjective: Patient reports no chest pain, denies palpitations, reports no lightheadedness. Reviewed/Discussed With: other (Dr Cristina) Objective: Vital Signs (8 Hrs) Temp Pulse Resp BP Pulse Ox 09/05/17 09:42 80 120/87 H 09/05/17 07:35 36.6 C 89 16 122/79 H 92 09/05/17 04:00 36.6 C 91 18 111/81 H 93 Intake/Output (24 Hrs) 09/04/17 09/05/17 09/06/17 05:59 05:59 05:59 Intake Total 1236 1200 Output Total 2670 1125 Balance -1434 75 Intake: Oral (ml) 736 750 IV Intake (ml) 500 450 Output: Urine (ml) 2670 1125 Incontinence 600 200 Urinal 2070 925 Other: Weight 90.5 kg 88.3 kg 88.5 kg Intake Quantity Yes Sufficient Number of Voids Incontinence 1 Toilet 1 Urinal 1 Number of Stools Toilet 1 Urinal 1 Result Diagrams: 09/05/17 03:05 09/05/17 03:05 - Physical Exam Constitutional: WDWN, no apparent distress Ears, Nose, Mouth, Throat: moist mucous membranes Cardiovascular: regular rate and rhythm, no rubs, no gallops, systolic murmur ( right upper chest), pulses symmetric bilat, No jugular vein distention, No carotid bruit Peripheral Pulses: 1+: dorsalis-pedis (R), dorsalis-pedis (L) Respiratory: other (Lungs are clear, but diminished in bases bilateral, no rhonchi, rales wheezing noted.) Gastrointestinal: normoactive bowel sounds Skin: warm, other (Mid sternal incision no redness, swelling, drainage or signs of infection.), No no edema (Trace to +1 peripheral edema bilateral extremities) Neurologic: AAOx3 Psychiatric: cooperative, interactive, following commands ICD10 Worksheet Patient Problems: Problems Problem Status Onset Acute blood loss anemia Acute S/P aortic valve replacement with bioprosthetic valve Acute ~08/28/17 Status post Maze operation for atrial fibrillation Acute ~08/28/17 s/p placement of LV epicardial lead Acute ~08/28/17 Aortic valve insufficiency Chronic Chronic anticoagulation Chronic Atrial fibrillation Chronic Cardiomyopathy, dilated, nonischemic Chronic
--- NOTE | 2017-09-05 11:08 | ECHO ---
[email or web address] [address] Main: [phone] Fax: Transesophageal Echocardiography Name: LIOR MARY MR#: [id number] Study Date: 09/04/2017 Study Time: 01:45 PM Date of : 1935 Age: 82 year(s) Height: ( ) Weight: ( ) BSA: Gender: Male Examination: PETE Indication: Pre Cardioversion Image Quality: Contrast: Requested by: Sanjay Soni Heart Rate: Rhythm: BP: / Procedure Staff Mobile Security Architect: Desean Quesada Reading Physician: John Bess Requesting Provider: PETE Exam Details Conclusions: The left atrium is moderately to severely dilated. No thrombus is noted in the left atrium. The left atrial appendage is oversewn. The aortic valve is a bioprosthesis. Normal functioning aortic valve prosthesis. Measurements: Chambers Valvular Assessment AV/MV Valvular Assessment TV/PV Normal Normal Normal Name Value Range Name Value Range Name Value Range Additional Measurements: Findings: Left Atrium: The left atrium is moderately to severely dilated. No thrombus is noted in the left atrium. Left Atrial Appendage: The left atrial appendage is oversewn. Aortic Valve: The aortic valve is a bioprosthesis. Normal functioning aortic valve prosthesis. Exam Comments: Patient: LIOR MARY Study Date: 09/04/2017 Page 1 of 2 01:45 PM Proceeded with successful elective DC cardioversion.. l1n (No Signature Object) Patient: LIOR MARY Study Date: 09/04/2017 Page 2 of 2 01:45 PM [id number]
[2017-09-05] MEDS ORDERED: WARFARIN SODIUM 2 MG TAB PO ONE (16:00)
[2017-09-05] MEDS: VENLAFAXINE XR 75 MG CAP PO SCH (17:19)
[2017-09-05] MEDS: DOFETILIDE 0.125 MG CAP PO SCH (20:16)
[2017-09-06 04:15] LABS: INR 2.09 (0.83-1.16); PROTIME(PATIENT) 23.5 SEC (12.0-15.0)
[2017-09-06 04:18] LABS: POTASSIUM 3.8 mEq/L (3.5-5.2)
[2017-09-06] MEDS: LEVOTHYROXINE 75 MCG TAB PO SCH (05:47)
--- NOTE | 2017-09-06 08:49 | SOAPPROG ---
SOAP Progress Note Assessment/Plan: Assessment: POD#9 AVR#25 Magna bioprosthesis, Rodriguez-Maze IV, left ventricular lead placement tunneled to AICD pocket POD#5 Rt thoracentesis 500ml POD#3 Left thoracentesis 650 ml Severe AI - s/p bioprosthetic AVR. Tubes and TCPWs out. Antithrombotic prophylaxis as per rhythm. Presence AICD for NIDCM - Epicardial LV lead placed and tunnelled to pacer pocket to secure NON CATEGORICAL PRESCHOOL TEACHER as dictated by cards. Long-standing persistent atrial fibrillation - s/p CM4. Predominant postop rhythm Vpaced. Lower pacer rate increased to 80 bpm. Intermittent rapid AT/ flutter as of POD#6 successfully converted back to paced rhythm with DC CVSN. Coumadin for INR 2-3 x 3 mo, then likely can revert to Xarelto if ongoing anticoagulation needed. Chronic AF prophylaxis with Tikosyn resumed. QTc noted to be > 500 but not felt to be significant as paced rhythm and ICD backup. Acute expected blood loss anemia - Stable s/p 3u PRBC. Dilated non-ischemic cardiomyopathy with acute on chronic sCHF - Use of lasix compl by orthostatic hypotension. Bedside echo neg for AI/PVL, atrial dilatation , sig MR/TR, RVSD, worsened LV systolic fx or pericardial effusion. Fluid resuscitation compl by CHF req temporary tx back to ICU for pressor support and closer monitoring. Now appears to be medically compensated. Staggered reintro of HF meds in progress. Acute on chronic respiratory insufficiency (nocturnal O2 use) - Exacerbated by fluid overload with small-mod bilat pleural effusions and atelectasis. Symptomatically improved post intensified diuresis and bilateral thoracenteses. Thyroid cyst - Incidentally punctured during intraop line placement. Cx neg. Plan: Cont Demadex 40 mg/KCl 20meq once daily. Cont Coreg 3.125 mg BID. Resume Coumadin 2.5mg daily. Dispo - SNF ([facility]) today. Close outpt monitoring. Instructions re diet, meds, activity, f/u and wound care to be reviewed in presence of family. 09/06/17 08:48 Subjective: Feels well. Ready for discharge. Objective: Vital Signs Temp Pulse Resp BP Pulse Ox 36.4 C 79 20 98/69 L 95 09/06/17 08:35 09/06/17 08:35 09/06/17 08:35 09/06/17 08:35 09/06/17 08:35 Laboratory Results 09/05/17 03:05 09/06/17 03:18 09/05/17 09/06/17 09/07/17 05:59 05:59 05:59 Intake Total 1200 1440 Output Total 1125 1345 Balance 75 95 PT 23.5 SEC (12.0-15.0) H 09/06/17 03:18 INR 2.09 (0.83-1.16) H 09/06/17 03:18 Remains ASVP or AVpaced. SBP > 90. Stable sats on 2 Lpm. CXR-> no pulm vasc congestion, tiny residual pleural effusions bilat Balanced I/Os. +2 kg overall. Labs ok. Sl dip in INR. Physical Exam - Physical Exam General Appearance: alert, no apparent distress Respiratory: lungs clear (grossly) Cardiac/Chest: regular rate, rhythm, other (Sternum grossly stable. Sternotomy and CT sites CDI) Abdomen: non-tender, soft Skin: warm/dry Extremities: swelling (trace pretibial, 1+ perimalleolar) ICD10 Worksheet Patient Problems: Problems Problem Status Onset Acute blood loss anemia Acute S/P aortic valve replacement with bioprosthetic valve Acute ~08/28/17 Status post Maze operation for atrial fibrillation Acute ~08/28/17 s/p placement of LV epicardial lead Acute ~08/28/17 Aortic valve insufficiency Chronic Chronic anticoagulation Chronic Atrial fibrillation Chronic Cardiomyopathy, dilated, nonischemic Chronic
[2017-09-06] MEDS ORDERED: traMADol 50 MG TAB PO PRN (09:00)
[2017-09-06] MEDS ORDERED: POTASSIUM CL 20 MEQ TAB PO ONE (09:00)
[2017-09-06] MEDS: CARVEDILOL 3.125 MG TAB PO SCH (09:23)
[2017-09-06] MEDS: ASPIRIN 81 MG CHEWABLE TAB PO SCH (09:23)
[2017-09-06] MEDS: POTASSIUM CL 20 MEQ TAB PO SCH (09:23)
[2017-09-06] MEDS: SENNOSIDES/DOCUSATE SODIUM TAB PO SCH (09:24)
[2017-09-06] MEDS: DOFETILIDE 0.125 MG CAP PO SCH (09:24)
[2017-09-06] MEDS: PANTOPRAZOLE SODIUM 40 MG TAB PO SCH (09:24)
[2017-09-06] MEDS: TORSEMIDE 20 MG TAB PO SCH (09:24)
[2017-09-06] MEDS: TAMSULOSIN HCL 0.4 MG CAP PO SCH (09:30)
--- NOTE | 2017-09-06 10:34 | PDCARPN ---
Cardiology Progress Note Chief Complaint: No cardiovascular complaints this morning. Ambulation without discomfort. Assessment/Plan: Assessment: Patient is an 82 y/o male with history of severe AI, now s/p AVR #25 Magna bio ( POD#9), atrial fibrillation s/p shah-maze IV (POD#9) with PETE/cardioversion (POD# 1), and non ischaemic CMP s/p ICD, who was without any cardiovascular complaints today. No chest pains or pressure. Ambulation without assistance earlier today. Given ongoing thoracic fluid presence, a right thoracentesis ( 500 ml) and left thoracentesis (650 ml) were performed over four days ago. Dofetilide therapy was resumed after appreciation of atrial flutter (as interpreted by [facility] Soni). Yesterday, the patient was feeling much better after PETE/cardioversion, and the same is noted today. Ongoing anticoagulation on coumadin with INR of 2.09. Coreg was started, and has been tolerated. Some questions about ongoing use of diuretics in this patient (who generally does not manifest lower extremity edema). Patient's weight is still up a few kilograms (about 2.5) since the surgery. ECG today has not been performed, but we should have a look at the JT today (this being a better assessment of arrhythmogenicity in this paced patient). Family was at bedside today. Plan: (1) Would continue therapy on Coreg 3.125 mg twice per day (blood pressure was well controlled today) (2) I would continue demadex as at present given the mild elevation in weight that is still noted, and the recent history of bilateral thoracentesis for pleural fluid (this being where the patient generally accumulates fluids per reports). The patient should have outpatient follow up in 72 hours or less for reassessment of weights and blood pressure. Following outpatient CT follow up, would arrange for patient to have a visit with Heart Failure clinic (Dr. Anusha Alvarado) (3) Maintain therapy on ASA given CV risks (4) Coumadin/Warfarin should continue given the pAF/flutter that has been noted (and CVA prophylaxis given [id number] score of 4) (5) Tikosyn should continue (we should have an ECG prior to discharge today to reassess the JT and JT index - normal values of 243-358 ms and >112 ms for "prolongation", respectively) (6) Continue synthroid and have outpatient assessment in 3-6 months (7) Outpatient cardiac rehab to be established (8) Maintain ICD interrogations as scheduled (9) Discharge planning is pending Subjective: No cardiovascular complaints Reviewed/Discussed With: family, hospitalist, multidisciplinary team Objective: Vital Signs (8 Hrs) Temp Pulse Resp BP Pulse Ox 09/06/17 09:23 85 103/80 09/06/17 08:48 91 L 09/06/17 08:35 36.4 C 79 20 98/69 L 95 09/06/17 03:27 104/71 09/06/17 03:24 36.8 C 80 17 104/71 92 Intake/Output (24 Hrs) 09/05/17 09/06/17 09/07/17 05:59 05:59 05:59 Intake Total 1200 1440 Output Total 1125 1345 Balance 75 95 Intake: Oral (ml) 750 1440 IV Intake (ml) 450 Output: Urine (ml) 1125 1345 Incontinence 200 Urinal 925 1345 Other: Weight 88.3 kg 88 kg Number of Voids Toilet 1 1 1 Urinal 1 Number of Stools Toilet 1 1 Result Diagrams: 09/05/17 03:05 09/06/17 03:18 Telemetry: sinus rhythm Echocardiogram: EF was 40-45% by TTE on 08/31/17 - Physical Exam Constitutional: WDWN, healthy appearing, no apparent distress Eyes: PERRL, EOMI Ears, Nose, Mouth, Throat: moist mucous membranes Cardiovascular: regular rate and rhythm, no murmurs, no rubs, no gallops, No jugular vein distention Peripheral Pulses: 2+: dorsalis-pedis (R), dorsalis-pedis (L) Respiratory: clear to auscultate bilat, no crackles, no wheezes Gastrointestinal: normoactive bowel sounds Skin: no rashes, no edema Musculoskeletal: no muscular tenderness Neurologic: AAOx3, CN II-XII grossly intact Psychiatric: cooperative, interactive, following commands ICD10 Worksheet Patient Problems: Problems Problem Status Onset Acute blood loss anemia Acute S/P aortic valve replacement with bioprosthetic valve Acute ~08/28/17 Status post Maze operation for atrial fibrillation Acute ~08/28/17 s/p placement of LV epicardial lead Acute ~08/28/17 Aortic valve insufficiency Chronic Chronic anticoagulation Chronic Atrial fibrillation Chronic Cardiomyopathy, dilated, nonischemic Chronic
--- NOTE | 2017-09-06 11:29 | PDIAF ---
- Diagnosis Diagnosis: s/p tissue AVR, AF ablation, LV epicard ld; NICM, chronic sCHF, AICD , PAF Code Status: Full Code - Medication Management Discharge Medications: Medications to Continue on Transfer Levothyroxine [Synthroid 75 mcg (*)] 75 mcg PO DAILY06 08/22/13 [Last Taken ] Venlafaxine Xr [Effexor Xr 75MG (*)] 225 mg PO DAILY18 08/22/13 [Last Taken ] Dofetilide [Tikosyn 0.125 MG (*)] 0.125 mg PO BID #60 cap 01/12/14 [Last Taken 08/26/17] Tamsulosin HCl [Flomax 0.4 MG (*)] 0.4 mg PO DAILY 08/19/17 [Last Taken 08/26/17 ] Acetaminophen [Tylenol 325mg (*)] 325 - 650 mg PO Q4HRS PRN tab 09/06/17 [Last Taken Unknown] Aspirin [Aspirin 81mg (*)] 81 mg PO DAILY tab.chew 09/06/17 [Last Taken Unknown ] Carvedilol [Coreg (*)] 3.125 mg PO BIDMEAL tab 09/06/17 [Last Taken Unknown] Polyethylene Glycol 3350 [Miralax 17 gm (*)] 17 gm PO DAILY PRN pkt 09/06/17 [ Last Taken Unknown] Potassium Cl [Klor-Con 20 meq (*)] 20 meq PO DAILY tab 09/06/17 [Last Taken Unknown] Sennosides/Docusate Sodium [Senokot-S] 1 - 2 tab PO BID PRN tab 09/06/17 [Last Taken Unknown] Torsemide [Demadex] 40 mg PO DAILY AT 10AM tab 09/06/17 [Last Taken Unknown] Warfarin Sodium [Coumadin 2.5MG (*)] 2.5 mg PO DAILY AT 4PM tab 09/06/17 [Last Taken Unknown] traMADol [Ultram 50 mg (*)] 50 mg PO Q6HRS PRN tab 09/06/17 [Last Taken Unknown ] Discharge Medications: Refer to the Discharge Home Medication list for PRN reason. PICC Care - Routine: N/A - Orders Services needed: Registered Nurse (cardiorespiratory and therapeutic drug monitoring), Physical Therapy (sternal precautions x 3 more weeks) Isolation Type: None Oxygen: prn SpO2 < 90%; preop qhs use @ 2 Lpm Diet Recommendation: sodium restricted (2 grams daily), fluid restriction (use comment for amount) (1800 ml daily) Diet Texture: Regular Texture Diet Weigh Patient: daily Sy: Not applicable Wound Care Instructions: daily soap and water. ok to leave all wounds open to air. avoid underwater immersion until scabs off. avoid ointments until scabs off Activity/Weight Bearing Restrictions: Sternal precautions x 3 more weeks. Avoid lifting > 10 lbs with an outstretched arm. Avoid push pull activities Additional: Call [employer] (Lilia) for resting HR > 120, SBP < 90 or > 160, supplemental O2 needs > 4 Lpm, overnight weight gain > 2 lbs, absolute weight gain > 5 lbs, or any wound concerns. - Labs/Radiology BMP Date: 09/09/17 (and then once weekly) CBC w/diff Date: 09/09/17 (without diff preferred) PT/INR Date: 09/08/17 (2-3x weekly until INR stable in therapeutic range) Imaging Orders: CXR prior to surgical appointment. Check-in [facility] [place]. Call or Fax Lab and Imaging Results to: Dr Rodrigues's nurse Patience Marquis - Follow Up Care Current Providers and Referrals: Anshul Alvarado MD [Medical Doctor] - follow up in 2 weeks (appointment to be established during surgical visit) Doctor Frandy,On Staff, [Primary Care Provider] - Efrain Rodrigues DO [Doctor of Osteopathy] - 09/10/17 11:00 am
[2017-09-06 12:50] VITALS: BP 103/56; PULSE 84; RESP 18; TEMP 98.4; O2SAT 93
--- NOTE | 2017-09-06 13:05 | CPEKG ---
Heart Rate: 80 RR Interval: 750 P-R Interval: 134 QRSD Interval: 156 QT Interval: 376 QTC Interval: 434 P [place]: 0 QRS [place]: -52 EKG Severity - ABNORMAL ECG - EKG Impression: A-V DUAL-PACED RHYTHM WITH SOME INHIBITION Electronically Signed By: Todd Banks 06-Sep-2017 22:27:09
--- NOTE | 2017-09-06 13:05 | PDDCSUM ---
Discharge Summary Discharge Summary: DATE OF ADMISSION: 08/27/17 DATE OF DISCHARGE: 09/06/17 DISPOSITION: Transferred to [facility] PRINCIPAL DISCHARGE DIAGNOSES: 1. Coronary artery disease excluded 2. Mild carotid atherosclerosis 3. Mild dilated cardiomyopathy 4. Elevated transvenous LV lead thresholds, treated with placement of an epicardial LV lead tunneled towards existing AICD pocket 5. Severe aortic valve insufficiency, treated with bioprosthetic aortic valve replacement 6. Longstanding persistent atrial fibrillation, treated with CoxMaze IV procedure utilizing radiofrequency and cryoablation, and including Clip exclusion of the left atrial appendage 7. Postoperative acute expected blood loss anemia 8. Postoperative acute on chronic systolic CHF with bilateral pleural effusions evacuated by thoracenteses 9. Postoperative rapid atrial flutter, treated successfully with electrical cardioversion FOLLOW UP APPOINTMENTS: 1. CV surgery: with Dr Rodrigues at [facility] on 09/10 at 11:00 am. Consider decrease lower pacemaker rate to 60 bpm. 2. Cardiology: with Dr Alvarado at [facility] within 2 weeks. Appointment to be established during surgical visit. FOLLOW UP TESTIN. INR on 09/08. Results to [facility]. 1. CBC and BMP on 09/09. Results to [facility]. 2. CXR prior to surgical appointment. ALLERGIES/SENSITIVITIES: NKDA DISCHARGE MEDICATIONS: see medical administration record for full details Essentially as on admission (Synthroid, Venlafaxine Xr, Tikosyn, Flomax, nocturnal O2 )with the following adjustments: 1. Hold Losartan 50 mg daily 2. Hold Spironolactone 6.25 mg daily 3. Hold Xarelto 20 mg daily 4. Hold Furosemide 40 mg BID 5. Decrease Coreg from 25 mg BID to 3.125 mg BID NEW prescriptions: 1. ASA 81 mg daily. Hold for INR > 3. 2. Torsemide 40 mg daily. 3. KlorCon 20 meq daily. 4. Coumadin 2.5 mg daily or as directed by INR. 5. Ultram 50 mg q 6h prn incisional discomfort not controlled with Tylenol CONSULTANTS: Clinical cardiology (Holly), EP cardiology (Nae), Interventional radiology PROCEDURES/IMAGIN/30 (Holly): Transesophageal echocardiogram: Mild MR, trileaflet AV with prolapsing RCC and severe AI, LVEF 40%. 08/27 (Holly): Left heart catheterization with selective coronary angiography and left ventriculogram. Access via rt common femoral artery. Findings: right dominant circulation, angiographically normal coronaries, LVEF 50%, LVEDP 11. 08/27 Carotid Ultrasound: mild atherosclerosis, antegrade vertebral flow bilaterally. 08/28 (Lilia): Aortic valve replacement with a 25mm Cheng Magna bovine pericardial bioprosthesis. Rodriguez-Maze IV procedure utilizing bipolar radiofrequency, cryothermy, and an AtriClip. Left ventricular epicardial lead placed and tunneled towards existing AICD pocket. 08/31 (Ramos): Transthoracic echocardiogram: Normal bioprosthetic AV fx, LVEF 40 -45%, mild MR, mild TR. 09/01 (Alok): Ultrasound guided right thoracentesis for 500 ml. 09/02 (Analia): Ultrasound guided left thoracentesis for 650 ml. 09/04 (Shahriar): Electrical cardioversion under PETE guidance: Successful with single shock. HISTORY OF PRESENT ILLNESS: 82 yo male with LPAF, tachycardia induced cardiomyopathy, ICD with elevated thresholds of LV lead, and progressive AI of trileaflet AV assoc with worsening LVE and declining LVEF, admitted in advance of cardiac surgery to complete risk stratification. Preop imaging negative for CAD, LVDD, significant LVSD, left atrial thrombus, or prohibitive neurologic risk. PERTINENT PAST MEDICAL HISTORY: Mild ascending aortic dilatation, Medtronic Viva Cardiac Resychronization Therapy Defibrillator in situ, Chronic class II systolic CHF, HTN, BPH, Depression, Nocturnal hypoxemia with 2 Lpm O2 use, Cystic thyroid mass, Hypothyroidism, Chronic anticoagulation ABBREVIATED HOSPITAL COURSE BY ACTIVE PROBLEM LIST: 1. Severe AI - s/p bioprosthetic AVR. Antithrombotic prophylaxis as per rhythm. 2. Presence ICD for NIDCM and FINANCE ASSISTANT - Under surveillance for elev LV lead thresholds. New epicardial LV lead placed and tunnelled to pacer pocket to secure FINANCE ASSISTANT as dictated by cards. 3. Long-standing persistent atrial fibrillation - s/p CM4. Predominant postop rhythm Vpaced. Lower pacer rate increased to 80 bpm for optimized hemodynamics. Intermittent rapid AT/flutter as of POD#6 successfully converted back to paced rhythm with DC CVSN. Antithrombotic prophylaxis switched to Coumadin x 3 mo; target INR 2-3. Likely can revert to Xarelto if ongoing anticoagulation needed for [id number] score of 4. Chronic AF prophylaxis with Tikosyn resumed. QTc noted to be > 500 but not felt to be significant as paced rhythm and ICD backup. 4. Acute expected blood loss anemia - Stable s/p 3u PRBC. 5. Dilated non-ischemic cardiomyopathy with acute on chronic sCHF - Use of lasix early postop compl by orthostatic hypotension. Fluid resuscitation compl by CHF with small-moderate bilateral pleural effusions req temporary tx back to ICU for pressor support and closer monitoring. Bedside echo neg for AI/PVL, atrial dilatation, sig MR/TR, RVSD, worsened LV systolic fx or pericardial effusion. Symptomatically improved post intensified diuresis and bilateral thoracenteses. Subsequently weaned off dopamine without further incident and HF meds partially reintroduced. 6. Thyroid cyst - Incidentally punctured during intraop line placement. Cx neg.
[2017-09-06] MEDS ORDERED: WARFARIN SODIUM 2.5 MG TAB PO SCH (16:00)
--- NOTE | 2017-09-06 16:29 | ASDISCHSUM ---
Discharge Information Plan Status:SNF Medically Cleared to Leave:09/05/2017 Discharge Date:09/06/2017 02:28 PM CM D/C Disposition:Detention Facility ADT D/C Disposition:Detention Facility Projected Discharge Date:09/06/2017 02:30 PM Transportation at D/C:Wheelchair Van Discharge Delay Reason: Follow-Up Date:09/06/2017 02:30 PM Discharge Slot: Final Diagnosis:AVR, Afib Placement Information Referral Type:*Penitentiary/SNF Referral ID:[facility]-[id number] Provider Name:Olivia Sanchez [place] Address 1:[address] Phone Number: Address 2: Fax Number: City:[place] Selection Factors: State:[place] Patient Contact Information Contact Name:MIRLANDE Relationship:Daughter Address:[address] Phone: City:[place] Alternate Phone: State/Zip Code:[place] [address] Email: Financial Information Financial Class: Primary Plan Desc:MEDICARE INPATIENT Primary Plan Number:[id number] Secondary Plan Desc: [facility] Secondary Plan Number:[id number] Assessment Information [facility] CM Progress Note CM Note CM Note Notes: Pt is s/p heart surgery with Dr Rodrigues. DC needs not clear yet, PT continuing to assess pt, awaiting their recommendation. Pt lives at home w/. CM will follow. Date Signed: 08/29/2017 04:09 PM Electronically Signed By:Shasta Napier RN [facility] CM Progress Note CM Note CM Note Notes: Met with patient and his daughter Tesha (who is hospitalist here). Anticipated d/c date is 09/02, and patient will be going home with home care. I contacted [facility] to give them heads up - pt will need RN/PT/OT. Family will transport him home. Current Case Management Discharge plan: home with [facility]. Patient's PCP is Narinder Yan in [place]. Date Signed: 08/31/2017 10:37 AM Electronically Signed By:Mar Rudd RN [facility] CM Progress Note CM Note CM Note Notes: 09/01/2017 Case Management Note Met w/pt, Tonya and teleconferenced in daughter Dr. Wayne to discuss desire for SNF Rehab. After discussing options sent referrals to [facility] in [place], [facility] in [place] and [facility] in [place]. Case Management d/c poc: to SNF rehab pending acceptance when medically stable. Case Management to follow. Date Signed: 09/01/2017 03:01 PM Electronically Signed By:Tala Villalba RN [facility] CM Progress Note CM Note CM Note Notes: Spoke with patient's and daughter who confirmed they are supportive of SNF rehab for patient at d/c. Mina from [facility] came to visit with the family today for an informational session only. Patient's Tonya has not made a decision about which facility they want patient to go to.CM will follow. Date Signed: 09/02/2017 02:05 PM Electronically Signed By:Aura Nicholas LCSW [facility] CM Progress Note CM Note CM Note Notes: CM met w/ pt and family to discuss dispo planning. Family would like inpatient rehab vs [facility]. CM to follow. Plan: Inpatient rehab vs [facility] Date Signed: 09/03/2017 11:46 AM Electronically Signed By:KENDALL Devlin [facility] CM Progress Note CM Note CM Note Notes: CM spoke w/ Dr. Rodrigues regarding d/c POC. Dr. Rodrigues is recommending that pt goes to [facility]. CM met w/ pt and for dispo planning. and daughter will most likely tour [facility] today. will notify CM of the facility that they will go w/. CM to follow. Plan: [facility] vs inpt rehab at [facility] Date Signed: 09/04/2017 12:43 PM Electronically Signed By:KENDALL Devlin Case Management Discharge Plan Note Case Management Discharge Discharge Order Complete? Answers: Yes Patient to Obtain Answers: Other Notes: [facility] Medications Transportation Arranged Answers: Other Notes: [facility] will Pick (Date 09/06/2017 02:30 PM & Time) Case Management Transport Answers: No Notes: Set up by [facility] Form Complete Faxed Final Orders Answers: Yes Notes: [facility] Agency/Facility Transfer Answers: Yes Notes: [facility] Report Printed & Faxed to Receiving Agency Family Notified Answers: Yes Notes: Family present at hospital Discharge Comments Notes: Patient has been [facility] to [facility]. Date Signed: 09/06/2017 12:12 PM Electronically Signed By:Nadia Purcell LCSW Intervention Information
== END 2017-09-06 14:28 | DRG 216 ==
LOC: FCATH 07:33 → F2W 13:01 → F2N 08-28 09:01 → F2W 08-30 11:13 → F2N 09-01 20:27 → F2W 09-03 11:25
PROVIDERS: ADMIT Thoracic Surgery (Cardiothoracic Vascular Surgery); ATTEND Thoracic Surgery (Cardiothoracic Vascular Surgery)
PROC: 4A023N7 Measurement of Cardiac Sampling and Pressure, Left Heart, Percutaneous Approach (ICD-10-PCS; 2017-08-27)
PROC: B2111ZZ Fluoroscopy of Multiple Coronary Arteries using Low Osmolar Contrast (ICD-10-PCS; 2017-08-27)
PROC: B2151ZZ Fluoroscopy of Left Heart using Low Osmolar Contrast (ICD-10-PCS; 2017-08-27)
PROC: 02HL0JZ Insertion of Pacemaker Lead into Left Ventricle, Open Approach (ICD-10-PCS; principal; 2017-08-28 08:15)
PROC: 06Q00ZZ Repair Inferior Vena Cava, Open Approach (ICD-10-PCS; principal; 2017-08-28 08:15)
PROC: 5A1221Z Performance of Cardiac Output, Continuous (ICD-10-PCS; principal; 2017-08-28 08:15)
PROC: 02RF08Z Replacement of Aortic Valve with Zooplastic Tissue, Open Approach (ICD-10-PCS; principal; 2017-08-28 08:15)
PROC: 02L70CK Occlusion of Left Atrial Appendage with Extraluminal Device, Open Approach (ICD-10-PCS; principal; 2017-08-28 08:15)
PROC: 0W993ZZ Drainage of Right Pleural Cavity, Percutaneous Approach (ICD-10-PCS; 2017-09-01)
PROC: 30233N1 Transfusion of Nonautologous Red Blood Cells into Peripheral Vein, Percutaneous Approach (ICD-10-PCS; 2017-09-01)
PROC: 0W9B3ZZ Drainage of Left Pleural Cavity, Percutaneous Approach (ICD-10-PCS; 2017-09-02)
PROC: 5A2204Z Restoration of Cardiac Rhythm, Single (ICD-10-PCS; 2017-09-04)
DX: I35.1 Nonrheumatic aortic (valve) insufficiency (principal); I11.0 Hypertensive heart disease with heart failure; I50.23 Acute on chronic systolic (congestive) heart failure; I48.1 Persistent atrial fibrillation; D62 Acute posthemorrhagic anemia; J90 Pleural effusion, not elsewhere classified; I42.9 Cardiomyopathy, unspecified; I65.29 Occlusion and stenosis of unspecified carotid artery; I25.10 Atherosclerotic heart disease of native coronary artery without angina pectoris; N40.0 Benign prostatic hyperplasia without lower urinary tract symptoms; F32.9 Major depressive disorder, single episode, unspecified; E03.9 Hypothyroidism, unspecified; E04.1 Nontoxic single thyroid nodule; G47.33 Obstructive sleep apnea (adult) (pediatric); Z79.01 Long term (current) use of anticoagulants; Z95.810 Presence of automatic (implantable) cardiac defibrillator
CPT/HCPCS: 82947-QW; 92610-GN; 97110-GP; 97116-GP; 97161-GP; 97165-GO; 97530-GO; 97530-GP; 97535-GO; C1898; G8978-GP-CL; G8979-GP-CI; G8987-GO-CL; G8988-GO-CJ; G8996-GN-CH; G8997-GN-CH; G8998-GN-CH; J0153; J0171; J0282; J0690; J1100; J1265; J1644; J1815; J1885; J1940; J2001; J2150; J2250; J2260; J2370; J2704; J2720; J2930; J3010; J7060; P9016; P9041; Q9967

== ENCOUNTER → 2017-09-10 | Outpatient (CLI) | payer OTHER, BC | LOC: FIMAGING 09:51 | PROVIDERS: ATTEND Thoracic Surgery (Cardiothoracic Vascular Surgery) | DX: Z01.818 Encounter for other preprocedural examination (principal) ==

== ENCOUNTER → 2017-11-02 | Outpatient (CLI) | payer OTHER, BC | LOC: BHFA 13:30 | PROVIDERS: ATTEND Internal Medicine Cardiovascular Disease | DX: I48.91 Unspecified atrial fibrillation (principal) ==

== ENCOUNTER → 2017-11-06 | Outpatient (CLI) | payer OTHER, BC | LOC: BHFA 11:30 | PROVIDERS: ATTEND Internal Medicine Cardiovascular Disease | DX: I48.91 Unspecified atrial fibrillation (principal) ==

== ENCOUNTER → 2018-01-27 | Outpatient (CLI) | payer OTHER, BC | LOC: BHFA 10:45 | PROVIDERS: ATTEND Internal Medicine Interventional Cardiology | DX: Z95.2 Presence of prosthetic heart valve (principal) ==

== ENCOUNTER → 2018-03-02 | Outpatient (CLI) | payer OTHER, BC | LOC: BHFA 11:45 | PROVIDERS: ATTEND Internal Medicine Cardiovascular Disease | DX: I48.0 Paroxysmal atrial fibrillation (principal); I42.9 Cardiomyopathy, unspecified; Z95.2 Presence of prosthetic heart valve; Z95.0 Presence of cardiac pacemaker ==

== ENCOUNTER → 2018-09-01 | Outpatient (CLI) | payer OTHER, BC | LOC: BMCIMAGING 13:27 | PROVIDERS: ATTEND Podiatrist Foot & Ankle Surgery | DX: M19.072 Primary osteoarthritis, left ankle and foot (principal); M85.88 Other specified disorders of bone density and structure, other site ==

== ENCOUNTER → 2018-12-15 | Outpatient (CLI) | payer OTHER, BC | LOC: FIMAGING 10:11 | PROVIDERS: ATTEND Family Medicine | DX: G25.9 Extrapyramidal and movement disorder, unspecified (principal); G31.1 Senile degeneration of brain, not elsewhere classified ==

== ENCOUNTER 2019-01-04 06:58 | Day surgery (SDC) | payer OTHER, BC ==
[2019-01-04] MEDS ORDERED: diphenhydrAMINE 25 MG CAP PO ONE (07:00)
[2019-01-04] MEDS ORDERED: ceFAZolin 2 GM/DEXTROSE 100 ML IV ONE (07:00)
[2019-01-04] MEDS ORDERED: NS 1,000 ML IV ONE (07:00)
[2019-01-04] MEDS ORDERED: BACITRACIN IRRIGATION/NS 50,000 UNITS/1,000 ML BTL IRR ONE (07:00)
[2019-01-04] MEDS ORDERED: DIAZEPAM 5 MG TAB PO ONE (07:00)
[2019-01-04 07:43] LABS: PLATELET COUNT 260 10^3/uL (150-400)
[2019-01-04 07:53] LABS: INR 1.87 (0.83-1.16); PROTIME(PATIENT) 20.6 SEC (12.0-15.0)
[2019-01-04] MEDS ORDERED: BUPIVACAINE 0.75% 10 ML SDV ONE (07:57)
[2019-01-04] MEDS ORDERED: LIDOCAINE 1% 300 MG/30 ML SDV ONE (07:57)
--- NOTE | 2019-01-04 08:15 | PDANEPAE ---
ANE History of Present Illness here for BIV gen change ANE Past Medical History - Cardiovascular History Hx Hypertension: Yes Hx Arrhythmias: Yes Hx Chest Pain: No Hx Coronary Artery / Peripheral Vascular Disease: No Hx CHF / Valvular Disease: Yes Hx Palpitations: No Cardiovascular History Comment: Rashad pacer-hx of A misbahPuneet LÓPEZPuneet Denies CP,SOB - Pulmonary History Hx COPD: No Hx Asthma/Reactive Airway Disease: No Hx Recent Upper Respiratory Infection: No Hx Oxygen in Use at Home: Yes Hx Sleep Apnea: Yes Pulmonary History Comment: when living in [place], [place] Sats ran 94%. In [place] Sats run 96-99%. Dx CORDELIA- NO CPAP, only O2 at nite. - Neurologic History Hx Cerebrovascular Accident: No Hx Seizures: No Hx Dementia: No - Endocrine History Hx Diabetes: No Endocrine History Comment: hypothyroid - Renal History Hx Renal Disorders: Yes Renal History Comment: BPH on Flomax - Liver History Hx Hepatic Disorders: No - Neurological & Psychiatric Hx Hx Neurological and Psychiatric Disorders: Yes Neurological / Psychiatric History Comment: depression-on Rx - Cancer History Hx Cancer: No - Congenital Disorder History Hx Congenital Disorders: No - GI History Hx Gastrointestinal Disorders: No - Other Health History Other Health History: skin-bruises sl more w/Xarelto - Chronic Pain History Chronic Pain: No - Surgical History Prior Surgeries: cataract extractions w/IOL. pacemaker insertion 2-14. sx on R epididymis. fatty tumor excised. R bunionectomy ANE Review of Systems Review of systems is: negative Review of Systems: - Exercise capacity Exercise capacity: >=4 METS - Pacemaker Pacemaker Type: Bi-Ventricular Date Pacemaker Last Checked: 06-03-2017 ANE Patient History - Allergies Allergies/Adverse Reactions: No Known Allergies Allergy (Unverified 08/22/13 11:30) - Home Medications Home Medications: Levothyroxine [Synthroid 75 mcg (*)] 75 mcg PO DAILY06 08/22/13 [Last Taken ] Venlafaxine Xr [Effexor Xr 75MG (*)] 225 mg PO DAILY18 08/22/13 [Last Taken ] Tamsulosin HCl [Flomax 0.4 MG (*)] 0.4 mg PO DAILY 08/19/17 [Last Taken 08/26/17 ] - Smoking Hx Smoking Status: Never smoked ANE Labs/Vital Signs - Labs Result Diagrams: 01/04/19 07:30 01/04/19 07:30 - Vital Signs Vital Signs: reviewed preoperatively; see RN documention for details Height: 183 cm Weight: 82.1 kg ANE Physical Exam - Airway Neck exam: FROM Mallampati Score: Class 1 - Pulmonary Pulmonary: no respiratory distress - Cardiovascular Cardiovascular: regular rate and rhythym - ASA Status ASA Status: III ANE Anesthesia Plan Anesthesia Plan: GA with mask
[2019-01-04] MEDS ORDERED: PROPOFOL/EMULSION 500 MG/50 ML BOTTLE IV ONE (08:26)
--- NOTE | 2019-01-04 08:27 | PDGENHP ---
History & Physical Chief Complaint: BiV ICD KIAH History of Present Illness: BiV ICD KIAH with elevated CS LV lead thresholds. Epicardial LV lead surgically placed 08/2017 and tunneled to his ICD pocket by Dr. Rodrigues Relevant Physical Exam: A&Ox4, no apparent distress. Respiratory CTA. Cardiac regular rate and rhythm. Cardiorespiratory Assessment: BiV ICD KIAH. Proceed with ICD generator change as planned for today. Plan to connect epicardial LV lead to new generator.
[2019-01-04] MEDS ORDERED: fentaNYL 100 MCG/2 ML INJ ONE (08:32)
[2019-01-04] MEDS ORDERED: PHENYLEPHRINE HCL 100 MCG/ML SYR ONE (09:30)
[2019-01-04] MEDS ORDERED: PROPOFOL 200 MG/20 ML VIAL ONE (09:40)
--- NOTE | 2019-01-04 10:23 | POSTANESTH ---
Post Anesthetic Evaluation Cardiovascular Status: Normal, Stable Respiratory Status: Normal, Stable Level of Consciousness/Mental Status: Mildly Sleepy, Arousable Pain Control: Adequate, Prn Tx Ordered Nausea/Vomiting Control: Adequate, Prn Tx Ordered Complications Possibly Related to Anesthesia: None Noted
--- NOTE | 2019-01-04 11:10 | EPPROC ---
Electrophysiology Procedure Note: PROCEDURE PERFORMED: 1. Explantation of an A-V Implantable Cardioverter Defibrillator 2. Implantation of an A-V Implantable Cardioverted Defibrillator INDICATION: ICD Generator at [facility] Cardiomyopathy PROCEDURE NOTE: Patient presented to the cardiac catherization laboratory in a fasting, postabsorptive state. Dr. Bety Leiva administered sedation. The L infraclavicular area was prepped and draped in the usual sterile fashion. Lidocaine plus bupivacaine was used for local anesthesia. Using a combination of blunt and sharp dissection and electrocautery, the dissection was carried down to the prepectoral fascia and the existing ICD pocket was opened. The ICD generator was disconnected from the leads and the lead thresholds and impedance were checked. Using blunt dissection and under fluoro guidance, surgically placed LV lead was brought to the pocket. CS LV lead threshold was 3 V @ 1 ms in the best vector. Surgical LV lead threshold was 1.7 V @ 1 ms. Therefore we decided to use the surgical instrument maker and capped the CS lead. The ICD pocket was copiously irrigated with antibiotic solution. The pocket was again inspected for any bleeding. The leads were attached to the ICD securely. The ICD was inserted into the pocket and secured in place with a nonabsorbable suture. Defibrillation testing was not performed. The ICD pocket was closed in 3 layers with absorbable monocryl sutures and sheela. Appropriate dressing was applied. The patient left the cardiac catheterization laboratory in stable condition. Serial Numbers: 1. Implanted Device: [facility] [id number] SN [id number] 2. Atrial Lead: Medtronic [id number] [id number] V 3. Ventricular Lead: Medtronic 6947 M [id number] V 4. Coronary sinus Lead: capped/usable : [id number] SN [id number] 5. LV epicardial lead : [facility] [id number] SN [id number] Stimulation Thresholds & Impedance Measurements: 1. Atrial Lead P 2.3 mV 410 ohm 0.75 V 0.5 ms 2. Ventricular Lead 11.8 mV 440 ohm 0.75 V 0.5 ms 3. LV epicardial Lead 14.3 mV 290 ohm 1.9 V 0.5 ms Defibrillation testing: Not done Pacing Parameters: 1. Pacing mode: DDDR 2. Lower rate: 70 ppm 3. Upper tracking rate:130 ppm 4. Upper sensor rate: 130 ppm Tachycardia therapy parameters: VF zone : Detection 200 bpm ATP x 1, 40 J VT zone : Detection 170 bpm ATP x 3, 26 J, 40 J Patient Problems: Problems Problem Status Onset Acute blood loss anemia Acute S/P aortic valve replacement with bioprosthetic valve Acute ~08/28/17 Status post Maze operation for atrial fibrillation Acute ~08/28/17 s/p placement of LV epicardial lead Acute ~08/28/17 Aortic valve insufficiency Chronic Atrial fibrillation Chronic Cardiomyopathy, dilated, nonischemic Chronic Chronic anticoagulation Chronic
--- NOTE | 2019-01-04 14:41 | CPEKG ---
Test Reason : OPEN Blood Pressure : / mmHG Vent. Rate : 082 BPM Atrial Rate : 082 BPM P-R Int : 216 ms QRS Dur : 152 ms QT Int : 438 ms P-R-T Axes : 188 -55 054 degrees QTc Int : 512 ms Atrial-sensed ventricular-paced complexes Confirmed by Garrick Hough ([id number]) on 01/04/2019 2:40:59 PM Referred By: Sanjay Soni Confirmed By:Garrick Hough
== END 2019-01-04 12:59 | disposition home or self-care (01) ==
LOC: FCATH 06:58
PROVIDERS: ATTEND Internal Medicine Cardiovascular Disease
PROC: 0JPT0PZ Removal of Cardiac Rhythm Related Device from Trunk Subcutaneous Tissue and Fascia, Open Approach (ICD-10-PCS; principal; 2019-01-04)
PROC: 0JH608Z Insertion of Defibrillator Generator into Chest Subcutaneous Tissue and Fascia, Open Approach (ICD-10-PCS; principal; 2019-01-04)
DX: Z45.02 Encounter for adjustment and management of automatic implantable cardiac defibrillator (principal); I42.9 Cardiomyopathy, unspecified; I48.0 Paroxysmal atrial fibrillation; Z95.4 Presence of other heart-valve replacement; G47.33 Obstructive sleep apnea (adult) (pediatric); I10 Essential (primary) hypertension; E03.9 Hypothyroidism, unspecified; N40.0 Benign prostatic hyperplasia without lower urinary tract symptoms
CPT/HCPCS: C1882; J0690; J2370; J2704; J3010

== ENCOUNTER → 2019-01-17 | Outpatient (CLI) | payer OTHER, BC | LOC: BHLMT 08:30 | PROVIDERS: ATTEND Internal Medicine Cardiovascular Disease | DX: I48.0 Paroxysmal atrial fibrillation (principal); I38 Endocarditis, valve unspecified; Z45.02 Encounter for adjustment and management of automatic implantable cardiac defibrillator | CPT/HCPCS: 93306-PO ==

== ENCOUNTER → 2019-02-02 | Outpatient (CLI) | payer OTHER, BC | LOC: BHFA 14:45 | PROVIDERS: ATTEND Internal Medicine Cardiovascular Disease | DX: I48.91 Unspecified atrial fibrillation (principal); I42.9 Cardiomyopathy, unspecified; I35.9 Nonrheumatic aortic valve disorder, unspecified ==